=== PATIENT | female | born 1955 | race African-American/Black ===

== ENCOUNTER 2018-11-14 20:33 | Observation (INO) ==
[2018-11-14] MEDS ORDERED: OXYMETAZOLINE 0.05% NASAL SPRAY 15 ML BOTTLE ONE (21:44)
[2018-11-14 22:01] LABS: Basophils % 0.4 % (0.0-0.8); Eosinophils % 0.6 % (0.00-10.9); Hematocrit 36.3 VOL% (35.7-47.0); Hemoglobin 12.2 GM/DL (12.0-16.0); Immature Granulocytes % 0.4 %; Immature Granulocytes Absolute 0.02 #; Lymphocytes # 1.9 10*3/uL (1.4-4.0); Mean Corpuscular HGB Conc 33.6 GM/DL (32-36); Mean Corpuscular Hemoglobin 35 PG (27-34); Mean Corpuscular Volume 104.3 FL (87-102); Mean Platelet Volume 11.3 FL (9.6-12.0); Monocytes # 0.5 10*3/uL (0.11-0.8); Neutrophils # 2.8 10*3/uL (1.4-7.4); Neutrophils % 52.6 % (38.7-73.9); Platelet Count 231 T/CUMM (130-400); Red Blood Count 3.48 MC/CUMM (3.8-5.5); Red Cell Distribution Width 13.1 % (9.3-17.3); White Blood Count 5.2 T/CUMM (4-12)
[2018-11-14 22:17] LABS: PT Patient Result 32.1 SECS
[2018-11-14] MEDS ORDERED: ONDANSETRON ODT 4 MG TABLET PO STA (22:27)
[2018-11-14] MEDS ORDERED: ONDANSETRON ODT 4 MG TABLET PO ONE (22:27)
[2018-11-14] MEDS ORDERED: PHYTONADIONE PEDIATRIC 1 MG/0.5 ML AMP IV ONE (22:49)
[2018-11-14] MEDS ORDERED: PANTOPRAZOLE 40 MG VIAL IV ONE (22:50)
[2018-11-14] MEDS ORDERED: PANTOPRAZOLE 40 MG VIAL IV STA (22:50)
[2018-11-14] MEDS ORDERED: ONDANSETRON 4 MG/2 ML VIAL IV ONE (22:50)
[2018-11-14] MEDS ORDERED: ONDANSETRON 4 MG/2 ML VIAL ONE (22:50)
[2018-11-14] MEDS ORDERED: SODIUM CHLORIDE 0.9% 1,000 ML IV STA (22:51)
[2018-11-14] MEDS ORDERED: PHYTONADIONE 10 MG/1 ML AMP ONE (23:13)
[2018-11-14 23:52] LABS: Hemoglobin 11.4 GM/DL (12.0-16.0)
[2018-11-15] MEDS ORDERED: LIDOCAINE 1% 20 ML VIAL MISC INJ STA (00:10)
[2018-11-15] MEDS: ONDANSETRON 4 MG/2 ML VIAL IV PRN ×4 (02:52→19:37)
[2018-11-15 04:45] LABS: Basophils % 0.3 % (0.0-0.8); Hematocrit 30.1 VOL% (35.7-47.0); Hemoglobin 9.9 GM/DL (12.0-16.0); Immature Granulocytes % 0.5 %; Immature Granulocytes Absolute 0.04 #; Lymphocytes # 0.8 10*3/uL (1.4-4.0); Lymphocytes % 11.3 % (21.3-54.2); Mean Corpuscular HGB Conc 32.9 GM/DL (32-36); Mean Corpuscular Hemoglobin 34 PG (27-34); Mean Corpuscular Volume 104.5 FL (87-102); Mean Platelet Volume 11.5 FL (9.6-12.0); Monocytes # 0.4 10*3/uL (0.11-0.8); Monocytes % 4.8 % (1.7-12.7); Neutrophils # 6.2 10*3/uL (1.4-7.4); Neutrophils % 83.1 % (38.7-73.9); Platelet Count 195 T/CUMM (130-400); Red Blood Count 2.88 MC/CUMM (3.8-5.5); Red Cell Distribution Width 13.1 % (9.3-17.3); White Blood Count 7.5 T/CUMM (4-12)
[2018-11-15 04:57] LABS: INR 1.8; PT Patient Result 19.2 SECS
[2018-11-15 05:01] LABS: Calcium 8.4 MG/DL (8.5-10.1); Osmolality,Calculated 284.5 MOS/KG (273-304); Potassium 3.5 MMOL/L (3.5-5.1)
[2018-11-15] MEDS ORDERED: OXYMETAZOLINE 0.05% NASAL SPRAY 15 ML BOTTLE ONE NARE ONE (08:20)
[2018-11-15] MEDS ORDERED: OXYMETAZOLINE 0.05% NASAL SPRAY 15 ML BOTTLE BOTH NARES SCH (09:00)
[2018-11-15] MEDS ORDERED: MINOXIDIL 10 MG TABLET PO SCH (12:30)
[2018-11-15] MEDS: METOCLOPRAMIDE 10 MG TABLET PO SCH ×4 (13:16→21:12)
[2018-11-15] MEDS: METOPROLOL TARTRATE 50 MG TABLET PO SCH ×3 (13:16→21:11)
[2018-11-15] MEDS ORDERED: SODIUM CHLORIDE 0.9% 500 ML IV ONE (14:05)
[2018-11-15] MEDS ORDERED: METOPROLOL TARTRATE 5 MG/5 ML VIAL IV PRN (16:58)
[2018-11-15] MEDS ORDERED: WARFARIN 5 MG TABLET PO SCH (18:00)
[2018-11-16 08:38] LABS: INR 1.1; PT Patient Result 11.6 SECS
[2018-11-16 08:53] LABS: Calcium 8.3 MG/DL (8.5-10.1); Osmolality,Calculated 279.4 MOS/KG (273-304); Potassium 3.7 MMOL/L (3.5-5.1)
[2018-11-16] MEDS ORDERED: PANTOPRAZOLE 40 MG TABLET PO SCH (09:00)
[2018-11-16] MEDS ORDERED: ASPIRIN EC 81 MG TABLET PO SCH (09:00)
[2018-11-16] MEDS ORDERED: ASCORBIC ACID 500 MG TABLET PO SCH (09:00)
[2018-11-16] MEDS ORDERED: APIXABAN 5 MG TABLET PO SCH (09:00)
[2018-11-16] MEDS ORDERED: LOSARTAN/HCTZ 50-12.5 MG TABLET PO SCH (09:00)
[2018-11-16] MEDS: METOCLOPRAMIDE 10 MG TABLET PO SCH ×2 (09:14→12:42)
[2018-11-16] MEDS: METOPROLOL TARTRATE 50 MG TABLET PO SCH (09:14)
[2018-11-16] MEDS ORDERED: MAGNESIUM CHLORIDE 64 MG TABLET PO SCH (10:00)
[2018-11-16 12:18] VITALS: BP 98/63
== END 2018-11-16 16:10 | disposition home or self-care (01) ==
LOC: N.ED 20:33 → N.EDINP 20:33 → N.TELEN 11-15 01:53
PROVIDERS: ADMIT Otolaryngology; ATTEND Otolaryngology

== ENCOUNTER 2019-02-07 03:01 | Observation (INO) ==
[2019-02-07] MEDS ORDERED: MORPHINE 4 MG/1 ML VIAL IV STA (03:24)
[2019-02-07] MEDS ORDERED: FUROSEMIDE 100 MG/10 ML VIAL IV STA (03:24)
[2019-02-07] MEDS ORDERED: ALBUTEROL/IPRATROPIUM 3 ML NEB RESP TX STA (03:24)
[2019-02-07] MEDS ORDERED: ONDANSETRON 4 MG/2 ML VIAL IV STA (03:39)
[2019-02-07] MEDS ORDERED: ONDANSETRON 4 MG/2 ML VIAL ONE (03:39)
[2019-02-07 04:33] LABS: INR 2.6
[2019-02-07 04:34] LABS: PT Patient Result 28.2 SECS
[2019-02-07 04:37] LABS: Basophils % 0.5 % (0.0-0.8); Eosinophils % 0.5 % (0.00-10.9); Hematocrit 35.5 VOL% (35.7-47.0); Hemoglobin 11.4 GM/DL (12.0-16.0); Immature Granulocytes % 0.3 %; Immature Granulocytes Absolute 0.02 #; Lymphocytes # 1.3 10*3/uL (1.4-4.0); Lymphocytes % 20.4 % (21.3-54.2); Mean Corpuscular HGB Conc 32.1 GM/DL (32-36); Mean Corpuscular Volume 99.7 FL (87-102); Monocytes % 5.8 % (1.7-12.7); Neutrophils % 72.5 % (38.7-73.9); Platelet Count 195 T/CUMM (130-400); Red Blood Count 3.56 MC/CUMM (3.8-5.5); Red Cell Distribution Width 13.8 % (9.3-17.3); White Blood Count 6.2 T/CUMM (4-12)
[2019-02-07 04:45] LABS: Albumin 3.5 G/DL (3.4-5.0); Bilirubin,Total 0.6 MG/DL (0.2-1.0); Calcium 8.9 MG/DL (8.5-10.1); Osmolality,Calculated 278.5 MOS/KG (273-304); Total Protein 7.5 G/DL (6.4-8.3)
[2019-02-07] MEDS ORDERED: ASPIRIN EC 325 MG TABLET PO STA (04:52)
[2019-02-07] MEDS ORDERED: NITROGLYCERIN 2% OINT 1 INCH/GM PACK TOP STA (04:52)
[2019-02-07] MEDS ORDERED: MORPHINE 4 MG/1 ML VIAL IV PRN (05:38)
[2019-02-07] MEDS ORDERED: diphenhydrAMINE CAP 25 MG CAPSULE PO PRN (05:38)
[2019-02-07] MEDS ORDERED: NICOTINE 21 MG/24 HR PATCH TRANSDERM PRN (05:38)
[2019-02-07] MEDS ORDERED: BISACODYL 5 MG TABLET PO PRN (05:38)
[2019-02-07] MEDS ORDERED: guaiFENesin/DM ER 600-30 MG TABLET PO PRN (05:38)
[2019-02-07] MEDS ORDERED: MAGNESIUM SULF RIDER 4 GM in PREMIX 1 EACH IV PRN (05:38)
[2019-02-07] MEDS ORDERED: MAGNESIUM SULF RIDER 2 GM in PREMIX 1 EACH IV PRN (05:38)
[2019-02-07] MEDS ORDERED: ONDANSETRON 4 MG/2 ML VIAL IV PRN (05:38)
[2019-02-07] MEDS ORDERED: ACETAMINOPHEN 325 MG TABLET PO PRN (05:38)
[2019-02-07 06:24] LABS: Risk Ratio 2.73; Thyroid Stimulating Hormone 3.82 uIU/ml (0.358-3.74); VLDL CHOLESTEROL 27.2 MG/DL
[2019-02-07] MEDS ORDERED: ENOXAPARIN 40 MG/0.4 ML SYRINGE SUBCUT SCH (09:00)
[2019-02-07] MEDS: PANTOPRAZOLE 40 MG TABLET PO SCH (10:52)
[2019-02-07] MEDS: FUROSEMIDE 40 MG/4 ML VIAL IV SCH ×3 (10:53→16:07)
[2019-02-07] MEDS: LEVOFLOXACIN INJ 500 MG in PREMIX 1 EACH IV SCH (10:58)
[2019-02-07 13:15] LABS: Troponin I 0.291 NG/ML (0.00-0.045)
[2019-02-07] MEDS: METOPROLOL TARTRATE 50 MG TABLET PO SCH ×2 (13:21→22:22)
[2019-02-07] MEDS: CYCLOBENZAPRINE 10 MG TABLET PO PRN ×2 (14:28→22:20)
[2019-02-07] MEDS: POTASSIUM CHLORIDE 20 MEQ TABLET PO PRN ×3 (14:29→18:19)
[2019-02-07] MEDS: WARFARIN 5 MG TABLET PO SCH (18:19)
[2019-02-07] MEDS: ATORVASTATIN 80 MG TABLET PO SCH (22:20)
[2019-02-08 04:51] LABS: Albumin 3.3 G/DL (3.4-5.0); Bilirubin,Total 0.8 MG/DL (0.2-1.0); Calcium 9.3 MG/DL (8.5-10.1); Osmolality,Calculated 275.7 MOS/KG (273-304); Total Protein 7.7 G/DL (6.4-8.3)
[2019-02-08] MEDS: LEVOFLOXACIN INJ 500 MG in PREMIX 1 EACH IV SCH (08:43)
[2019-02-08] MEDS: LOSARTAN/HCTZ 50-12.5 MG TABLET PO SCH (08:45)
[2019-02-08] MEDS: METOPROLOL TARTRATE 50 MG TABLET PO SCH ×2 (08:45→21:31)
[2019-02-08] MEDS: ASCORBIC ACID 500 MG TABLET PO SCH (08:45)
[2019-02-08] MEDS: PANTOPRAZOLE 40 MG TABLET PO SCH (08:45)
[2019-02-08] MEDS: ASPIRIN EC 81 MG TABLET PO SCH (08:46)
[2019-02-08 14:59] LABS: INR 1.8; PT Patient Result 19.1 SECS; Partial Thromboplastin Time 32.7 SECS (0-40)
[2019-02-08] MEDS: GENTAMICIN 0.3% OPH SOLN 5 ML BOTTLE BOTH EYES SCH ×3 (15:13→23:10)
[2019-02-08] MEDS: ALBUTEROL/IPRATROPIUM 3 ML NEB RESP TX SCH ×3 (15:32→22:50)
[2019-02-08] MEDS ORDERED: WARFARIN 7.5 MG TABLET PO SCH (18:00)
[2019-02-08] MEDS: LEVOFLOXACIN INJ 750 MG in PREMIX 1 EACH IV SCH (21:30)
[2019-02-08] MEDS: ATORVASTATIN 80 MG TABLET PO SCH (21:31)
[2019-02-09] MEDS: ALBUTEROL/IPRATROPIUM 3 ML NEB RESP TX SCH ×3 (02:42→12:00)
[2019-02-09] MEDS: GENTAMICIN 0.3% OPH SOLN 5 ML BOTTLE BOTH EYES SCH ×6 (03:16→23:00)
[2019-02-09 04:59] LABS: Basophils % 0.8 % (0.0-0.8); Eosinophils % 0.8 % (0.00-10.9); Hematocrit 39.9 VOL% (35.7-47.0); Hemoglobin 12.9 GM/DL (12.0-16.0); Immature Granulocytes % 0.2 %; Immature Granulocytes Absolute 0.01 #; Lymphocytes % 39.1 % (21.3-54.2); Mean Corpuscular HGB Conc 32.3 GM/DL (32-36); Mean Platelet Volume 11.6 FL (9.6-12.0); Monocytes % 12.4 % (1.7-12.7); Neutrophils % 46.7 % (38.7-73.9); Platelet Count 199 T/CUMM (130-400); Red Blood Count 4.03 MC/CUMM (3.8-5.5); Red Cell Distribution Width 13.9 % (9.3-17.3)
[2019-02-09 05:07] LABS: INR 1.8; Partial Thromboplastin Time 33.8 SECS (0-40)
[2019-02-09 05:41] LABS: Calcium 9.1 MG/DL (8.5-10.1); Osmolality,Calculated 274.8 MOS/KG (273-304)
[2019-02-09] MEDS: ASCORBIC ACID 500 MG TABLET PO SCH (09:08)
[2019-02-09] MEDS: LOSARTAN/HCTZ 50-12.5 MG TABLET PO SCH (09:08)
[2019-02-09] MEDS: PANTOPRAZOLE 40 MG TABLET PO SCH (09:08)
[2019-02-09] MEDS: METOPROLOL TARTRATE 50 MG TABLET PO SCH ×2 (09:08→21:00)
[2019-02-09] MEDS: ASPIRIN EC 81 MG TABLET PO SCH (09:08)
[2019-02-09] MEDS: POTASSIUM CHLORIDE 20 MEQ TABLET PO PRN ×2 (09:08→11:05)
[2019-02-09] MEDS ORDERED: DICLOFENAC 1% GEL 100 GM TUBE TOP PRN (11:33)
[2019-02-09] MEDS: IPRATROPIUM 500 MCG/2.5 ML NEB RESP TX SCH ×3 (12:00→19:15)
[2019-02-09] MEDS: LEVALBUTEROL 1.25 MG/3 ML NEB RESP TX SCH ×2 (14:40→19:15)
[2019-02-09] MEDS: WARFARIN 5 MG TABLET PO SCH (17:48)
[2019-02-09] MEDS: LEVOFLOXACIN INJ 750 MG in PREMIX 1 EACH IV SCH (20:59)
[2019-02-09] MEDS: CYCLOBENZAPRINE 10 MG TABLET PO PRN (21:00)
[2019-02-09] MEDS: ATORVASTATIN 80 MG TABLET PO SCH (21:00)
[2019-02-10] MEDS: GENTAMICIN 0.3% OPH SOLN 5 ML BOTTLE BOTH EYES SCH ×6 (03:26→23:10)
[2019-02-10 06:11] LABS: Basophils % 0.7 % (0.0-0.8); Eosinophils % 0.9 % (0.00-10.9); Hematocrit 40.4 VOL% (35.7-47.0); Hemoglobin 12.8 GM/DL (12.0-16.0); Immature Granulocytes % 0.2 %; Immature Granulocytes Absolute 0.01 #; Lymphocytes # 1.6 10*3/uL (1.4-4.0); Lymphocytes % 35.5 % (21.3-54.2); Mean Corpuscular HGB Conc 31.7 GM/DL (32-36); Mean Corpuscular Volume 100.5 FL (87-102); Mean Platelet Volume 11.5 FL (9.6-12.0); Monocytes % 10.7 % (1.7-12.7); Platelet Count 197 T/CUMM (130-400); Red Blood Count 4.02 MC/CUMM (3.8-5.5); Red Cell Distribution Width 13.9 % (9.3-17.3); White Blood Count 4.5 T/CUMM (4-12)
[2019-02-10 06:20] LABS: INR 1.7; PT Patient Result 18.7 SECS; Partial Thromboplastin Time 32.4 SECS (0-40)
[2019-02-10] MEDS: LEVALBUTEROL 1.25 MG/3 ML NEB RESP TX SCH ×4 (06:48→20:15)
[2019-02-10] MEDS: IPRATROPIUM 500 MCG/2.5 ML NEB RESP TX SCH ×4 (06:48→20:15)
[2019-02-10 06:54] LABS: Calcium 9.2 MG/DL (8.5-10.1); Osmolality,Calculated 275.8 MOS/KG (273-304)
[2019-02-10] MEDS: ASPIRIN EC 81 MG TABLET PO SCH (08:34)
[2019-02-10] MEDS: LOSARTAN/HCTZ 50-12.5 MG TABLET PO SCH (08:34)
[2019-02-10] MEDS: METOPROLOL TARTRATE 50 MG TABLET PO SCH ×2 (08:34→20:59)
[2019-02-10] MEDS: ASCORBIC ACID 500 MG TABLET PO SCH (08:35)
[2019-02-10] MEDS: PANTOPRAZOLE 40 MG TABLET PO SCH (08:35)
[2019-02-10] MEDS: guaiFENesin/DM ER 600-30 MG TABLET PO SCH ×2 (10:59→20:59)
[2019-02-10] MEDS: WARFARIN 5 MG TABLET PO SCH (17:56)
[2019-02-10] MEDS: LEVOFLOXACIN INJ 750 MG in PREMIX 1 EACH IV SCH (20:59)
[2019-02-10] MEDS: CYCLOBENZAPRINE 10 MG TABLET PO PRN (20:59)
[2019-02-10] MEDS: ATORVASTATIN 80 MG TABLET PO SCH (20:59)
[2019-02-11] MEDS: IPRATROPIUM 500 MCG/2.5 ML NEB RESP TX SCH ×2 (00:51→07:22)
[2019-02-11] MEDS: LEVALBUTEROL 1.25 MG/3 ML NEB RESP TX SCH ×2 (00:51→07:22)
[2019-02-11] MEDS: GENTAMICIN 0.3% OPH SOLN 5 ML BOTTLE BOTH EYES SCH ×2 (03:47→06:23)
[2019-02-11 05:13] LABS: Basophils % 0.7 % (0.0-0.8); Eosinophils # 0.1 10*3/uL (0.0-0.87); Eosinophils % 1.1 % (0.00-10.9); Hematocrit 39.9 VOL% (35.7-47.0); Immature Granulocytes % 0.2 %; Immature Granulocytes Absolute 0.01 #; Lymphocytes # 1.5 10*3/uL (1.4-4.0); Lymphocytes % 31.7 % (21.3-54.2); Mean Corpuscular HGB Conc 32.6 GM/DL (32-36); Mean Corpuscular Volume 98.8 FL (87-102); Mean Platelet Volume 11.9 FL (9.6-12.0); Neutrophils % 56.3 % (38.7-73.9); Platelet Count 197 T/CUMM (130-400); Red Blood Count 4.04 MC/CUMM (3.8-5.5); Red Cell Distribution Width 14.1 % (9.3-17.3); White Blood Count 4.6 T/CUMM (4-12)
[2019-02-11 05:23] LABS: INR 1.8; PT Patient Result 19.4 SECS
[2019-02-11 05:44] LABS: Calcium 9.3 MG/DL (8.5-10.1); Osmolality,Calculated 275.8 MOS/KG (273-304)
[2019-02-11 08:17] VITALS: BP 105/81
[2019-02-11] MEDS: ASCORBIC ACID 500 MG TABLET PO SCH (09:27)
[2019-02-11] MEDS: LOSARTAN/HCTZ 50-12.5 MG TABLET PO SCH (09:27)
[2019-02-11] MEDS: ASPIRIN EC 81 MG TABLET PO SCH (09:27)
[2019-02-11] MEDS: METOPROLOL TARTRATE 50 MG TABLET PO SCH (09:27)
[2019-02-11] MEDS: guaiFENesin/DM ER 600-30 MG TABLET PO SCH (09:27)
[2019-02-11] MEDS: PANTOPRAZOLE 40 MG TABLET PO SCH (09:28)
== END 2019-02-11 11:30 | disposition home or self-care (01) | DRG 193 ==
LOC: N.ED 03:01 → N.EDINP 05:38 → INTOOBSV 05:38 → N.TELEN 06:24
PROVIDERS: ADMIT Internal Medicine; ATTEND Internal Medicine

== ENCOUNTER 2021-03-01 17:29 | Observation (INO) ==
[2021-03-01 18:55] LABS: Basophils % 0.5 % (0.0-0.8); Eosinophils # 0.1 10*3/uL (0.0-0.87); Eosinophils % 0.9 % (0.00-10.9); Hematocrit 33.4 VOL% (35.7-47.0); Hemoglobin 11.1 GM/DL (12.0-16.0); Immature Granulocytes % 0.2 %; Immature Granulocytes Absolute 0.01 #; Lymphocytes # 1.7 10*3/uL (1.4-4.0); Lymphocytes % 29.9 % (21.3-54.2); Mean Corpuscular HGB Conc 33.2 GM/DL (32-36); Mean Corpuscular Volume 103.1 FL (87-102); Mean Platelet Volume 11.4 FL (9.6-12.0); Monocytes % 6.6 % (1.7-12.7); Neutrophils % 61.9 % (38.7-73.9); Platelet Count 237 T/CUMM (130-400); Red Blood Count 3.24 MC/CUMM (3.8-5.5); White Blood Count 5.6 T/CUMM (4-12)
[2021-03-01 19:03] LABS: INR 2.2; PT Patient Result 23.1 SECS (10.5-12.0)
[2021-03-01 19:11] LABS: Albumin 3.5 G/DL (3.4-5.0); Bilirubin,Total 0.6 MG/DL (0.2-1.0); Calcium 9.3 MG/DL (8.5-10.1); Osmolality,Calculated 280.3 MOS/KG (273-304); Potassium 5.1 MMOL/L (3.5-5.1); Total Protein 8.5 G/DL (6.4-8.2)
[2021-03-01] MEDS ORDERED: FUROSEMIDE 100 MG/10 ML VIAL IV STA (19:23)
[2021-03-01] MEDS ORDERED: FUROSEMIDE 40 MG/4 ML VIAL ONE (19:25)
[2021-03-01] MEDS ORDERED: MAGNESIUM SULF RIDER 4 GM/100 ML PREMIX IV PRN (19:51)
[2021-03-01] MEDS ORDERED: ONDANSETRON 4 MG/2 ML VIAL IV PRN (19:51)
[2021-03-01] MEDS ORDERED: MAGNESIUM SULF RIDER 2 GM/50 ML PREMIX IV PRN (19:51)
[2021-03-01] MEDS ORDERED: ONDANSETRON 4 MG/2 ML VIAL IV STA (19:53)
[2021-03-01] MEDS: FUROSEMIDE 40 MG TABLET PO SCH (22:37)
[2021-03-01] MEDS: METOCLOPRAMIDE 10 MG TABLET PO SCH (22:37)
[2021-03-01] MEDS: METOPROLOL TARTRATE 50 MG TABLET PO SCH (22:37)
[2021-03-02] MEDS ORDERED: ALBUTEROL 2.5 MG/3 ML NEB RESP TX SCH (07:00)
[2021-03-02] MEDS ORDERED: POTASSIUM CHLORIDE 20 MEQ TABLET PO PRN (07:32)
[2021-03-02] MEDS ORDERED: WARFARIN 5 MG TABLET PO SCH (09:00)
[2021-03-02] MEDS ORDERED: MAGNESIUM OXIDE 400 MG TABLET PO SCH (09:00)
[2021-03-02] MEDS ORDERED: LOSARTAN 50 MG TABLET PO SCH (09:00)
[2021-03-02] MEDS ORDERED: PANTOPRAZOLE 40 MG TABLET PO SCH (09:00)
[2021-03-02] MEDS ORDERED: LATANOPROST 0.005% OPH SOLN 2.5 ML BOTTLE BOTH EYES SCH (09:00)
[2021-03-02] MEDS ORDERED: ASCORBIC ACID 500 MG TABLET PO SCH (09:00)
[2021-03-02] MEDS ORDERED: SIMVASTATIN 10 MG TABLET PO SCH (09:00)
[2021-03-02] MEDS ORDERED: ASPIRIN EC 81 MG TABLET PO SCH (09:00)
[2021-03-02] MEDS ORDERED: SACUBITRIL/VALSARTAN 49-51 MG TABLET PO SCH (09:07)
[2021-03-02] MEDS: METOPROLOL TARTRATE 50 MG TABLET PO SCH (09:36)
[2021-03-02] MEDS: METOCLOPRAMIDE 10 MG TABLET PO SCH (09:37)
[2021-03-02] MEDS: FUROSEMIDE 40 MG TABLET PO SCH (09:38)
[2021-03-02] MEDS ORDERED: ACETAMINOPHEN 325 MG TABLET PO PRN (10:47)
[2021-03-02 12:05] VITALS: BP 119/70
[2021-03-02] MEDS ORDERED: WARFARIN 7.5 MG TABLET PO SCH (18:00)
[2021-03-03] MEDS ORDERED: WARFARIN 7.5 MG TABLET PO SCH (18:00)
== END 2021-03-02 13:34 | disposition home or self-care (01) ==
LOC: N.ED 17:29 → N.EDINP 17:29 → N.TELEN 21:59
PROVIDERS: ADMIT Internal Medicine Cardiovascular Disease; ATTEND Internal Medicine Cardiovascular Disease

== ENCOUNTER 2022-09-19 15:18 | Inpatient (IN) ==
[2022-09-19 16:56] LABS: Basophils % 0.2 % (0.0-0.8); Hematocrit 32.2 VOL% (35.7-47.0); Hemoglobin 10.7 GM/DL (12.0-16.0); Immature Granulocytes % 0.4 %; Immature Granulocytes Absolute 0.03 #; Lymphocytes # 0.9 10*3/uL (1.4-4.0); Lymphocytes % 10.8 % (21.3-54.2); Mean Corpuscular HGB Conc 33.2 GM/DL (32-36); Mean Corpuscular Volume 107.3 FL (87-102); Mean Platelet Volume 10.9 FL (9.6-12.0); Monocytes # 0.4 10*3/uL (0.11-0.8); Monocytes % 5.1 % (1.7-12.7); Neutrophils % 83.5 % (38.7-73.9); Platelet Count 254 T/CUMM (130-400); Red Cell Distribution Width 15.2 % (9.3-17.3); White Blood Count 8.5 T/CUMM (4-12)
[2022-09-19 17:14] LABS: RBC,Urine 1 /HPF (0-4); Squamous Epithelial Cell,Urine Few /HPF (0-10)
[2022-09-19 17:15] LABS: Bilirubin,Urine Negative (Negative); Blood, Urine Negative (Negative); Glucose,Urine (UA) Negative (Negative); Ketones,Urine Negative (Negative); Nitrite,Urine Negative (Negative); Protein,Urine 100 mg/dL (Negative); Urine Appearance Clear (Clear); Urine Color Yellow (Yellow); Urine Specific Gravity 1.015 (1.001-1.035); Urine Urobilinogen 0.2 eU/dL (<2.0); Urine pH 8.5 (4.5-8.0)
[2022-09-19 17:17] LABS: Alanine Aminotransferase < 9 U/L (13-56); Albumin 3.1 G/DL (3.4-5.0); Alkaline Phosphatase 124 U/L (45-117); Aspartate Amino Transferase 22 U/L (0-37); Blood Urea Nitrogen 11 MG/DL (7-18); Calcium 9.6 MG/DL (8.5-10.1); Carbon Dioxide 25 MMOL/L (21-32); Chloride 106 MMOL/L (98-107); Glucose 93 MG/DL (74-106); Osmolality,Calculated 277.4 MOS/KG (273-304); Potassium 3.7 MMOL/L (3.5-5.1); Sodium 140 MMOL/L (136-145); Total Protein 7.5 G/DL (6.4-8.2)
[2022-09-19] MEDS ORDERED: KETOROLAC 30 MG/1 ML VIAL IV STA (19:21)
[2022-09-19] MEDS ORDERED: SODIUM CHLORIDE 0.9% 1,000 ML IV STA (19:21)
[2022-09-19] MEDS ORDERED: ONDANSETRON 4 MG/2 ML VIAL IV STA (19:21)
[2022-09-19] MEDS ORDERED: PIPERACILLIN/TAZOBACTAM 3,375 MG in SODIUM CHLORIDE 0.9% 100 ML IV STA (19:21)
[2022-09-19] MEDS ORDERED: metroNIDAZOLE INJ 500 MG/100 ML PREMIX IV STA (19:21)
[2022-09-19] MEDS: MORPHINE 2 MG/1 ML SYRINGE IV PRN (20:46)
[2022-09-19 23:09] LABS: INR 1.7; PT Patient Result 17.7 SECS (10.1-12.1); Partial Thromboplastin Time 50.4 SECS (23.7-32.9)
[2022-09-19] MEDS: AMPICILLIN/SULBACTAM 3,000 MG in SODIUM CHLORIDE 0.9% 100 ML IV SCH (23:20)
[2022-09-19] MEDS: LACTATED RINGERS 1,000 ML IV SCH (23:20)
[2022-09-19] MEDS: ONDANSETRON 4 MG/2 ML VIAL IV PRN (23:29)
[2022-09-20 05:38] LABS: Basophils % 0.3 % (0.0-0.8); Eosinophils % 0.3 % (0.00-10.9); Hematocrit 25.6 VOL% (35.7-47.0); Hemoglobin 8.2 GM/DL (12.0-16.0); Immature Granulocytes % 0.4 %; Immature Granulocytes Absolute 0.03 #; Lymphocytes # 1.2 10*3/uL (1.4-4.0); Mean Corpuscular Volume 113.3 FL (87-102); Mean Platelet Volume 11.5 FL (9.6-12.0); Monocytes # 0.3 10*3/uL (0.11-0.8); Monocytes % 4.4 % (1.7-12.7); Neutrophils % 77.6 % (38.7-73.9); Platelet Count 193 T/CUMM (130-400); Red Blood Count 2.26 MC/CUMM (3.8-5.5); Red Cell Distribution Width 15.7 % (9.3-17.3); White Blood Count 6.9 T/CUMM (4-12)
[2022-09-20 05:39] LABS: Calcium 8.3 MG/DL (8.5-10.1); Osmolality,Calculated 278.3 MOS/KG (273-304); Potassium 3.7 MMOL/L (3.5-5.1)
[2022-09-20] MEDS: LACTATED RINGERS 1,000 ML IV SCH ×2 (05:53→09:41)
[2022-09-20 05:54] LABS: Macrocytosis Slight; Platelet Estimate Adequate
[2022-09-20] MEDS: ONDANSETRON 4 MG/2 ML VIAL IV PRN ×3 (09:40→23:54)
[2022-09-20] MEDS: MORPHINE 2 MG/1 ML SYRINGE IV PRN ×3 (09:41→23:55)
[2022-09-20] MEDS ORDERED: NITROGLYCERIN SL 0.4 MG TABLET SL PRN (10:51)
[2022-09-20] MEDS ORDERED: ALBUTEROL 2.5 MG/3 ML NEB RESP TX PRN (10:51)
[2022-09-20] MEDS: AMPICILLIN/SULBACTAM 3,000 MG in SODIUM CHLORIDE 0.9% 100 ML IV SCH ×4 (11:08→23:56)
[2022-09-20] MEDS: ENOXAPARIN 100 MG/ML SYRINGE SUBCUT SCH (14:20)
[2022-09-20] MEDS ORDERED: ALBUTEROL/IPRATROPIUM 3 ML NEB RESP TX PRN (14:45)
[2022-09-20] MEDS: METOPROLOL TARTRATE 50 MG TABLET PO SCH (21:45)
[2022-09-20] MEDS: MAGNESIUM OXIDE 400 MG TABLET PO SCH (21:45)
[2022-09-20] MEDS: SIMVASTATIN 10 MG TABLET PO SCH (21:46)
[2022-09-20] MEDS: PANTOPRAZOLE 40 MG TABLET PO SCH (21:46)
[2022-09-20] MEDS: CITALOPRAM 20 MG TABLET PO SCH (21:46)
[2022-09-20] MEDS: LATANOPROST 0.005% OPH SOLN 2.5 ML BOTTLE BOTH EYES SCH (21:46)
[2022-09-21 05:09] LABS: Basophils % 0.3 % (0.0-0.8); Eosinophils % 0.4 % (0.00-10.9); Hematocrit 26.7 VOL% (35.7-47.0); Hemoglobin 8.6 GM/DL (12.0-16.0); Immature Granulocytes % 0.4 %; Immature Granulocytes Absolute 0.03 #; Lymphocytes # 0.8 10*3/uL (1.4-4.0); Lymphocytes % 10.6 % (21.3-54.2); Mean Corpuscular HGB Conc 32.2 GM/DL (32-36); Mean Corpuscular Volume 110.8 FL (87-102); Mean Platelet Volume 11.4 FL (9.6-12.0); Monocytes # 0.4 10*3/uL (0.11-0.8); Monocytes % 5.4 % (1.7-12.7); Neutrophils % 82.9 % (38.7-73.9); Platelet Count 226 T/CUMM (130-400); Red Blood Count 2.41 MC/CUMM (3.8-5.5); Red Cell Distribution Width 15.2 % (9.3-17.3); White Blood Count 7.2 T/CUMM (4-12)
[2022-09-21] MEDS: AMPICILLIN/SULBACTAM 3,000 MG in SODIUM CHLORIDE 0.9% 100 ML IV SCH ×3 (05:20→17:19)
[2022-09-21 05:30] LABS: Calcium 8.9 MG/DL (8.5-10.1); Hypochromia Slight; Macrocytosis Slight; Osmolality,Calculated 279.3 MOS/KG (273-304); Potassium 3.5 MMOL/L (3.5-5.1)
[2022-09-21 05:31] LABS: Platelet Estimate Normal
[2022-09-21] MEDS: ONDANSETRON 4 MG/2 ML VIAL IV PRN ×3 (06:00→20:58)
[2022-09-21] MEDS: MORPHINE 2 MG/1 ML SYRINGE IV PRN (06:02)
[2022-09-21] MEDS: VALSARTAN 80 MG TABLET PO SCH (09:40)
[2022-09-21] MEDS: MULTIVITAMIN (CENTRUM) TABLET PO SCH (09:41)
[2022-09-21] MEDS: METOPROLOL TARTRATE 50 MG TABLET PO SCH (09:41)
[2022-09-21] MEDS: THIAMINE 100 MG TABLET PO SCH (09:41)
[2022-09-21] MEDS: SPIRONOLACTONE 25 MG TABLET PO SCH (09:41)
[2022-09-21] MEDS: MAGNESIUM OXIDE 400 MG TABLET PO SCH ×2 (09:41→20:58)
[2022-09-21] MEDS: PANTOPRAZOLE 40 MG TABLET PO SCH ×2 (09:41→20:58)
[2022-09-21] MEDS: FOLIC ACID 1 MG TABLET PO SCH (09:41)
[2022-09-21] MEDS: ENOXAPARIN 100 MG/ML SYRINGE SUBCUT SCH (12:20)
[2022-09-21] MEDS ORDERED: METOPROLOL TARTRATE 50 MG TABLET PO ONE (15:51)
[2022-09-21] MEDS: CITALOPRAM 20 MG TABLET PO SCH (20:57)
[2022-09-21] MEDS: SIMVASTATIN 10 MG TABLET PO SCH (20:58)
[2022-09-21] MEDS: METOPROLOL TARTRATE 100 MG TABLET PO SCH (20:58)
[2022-09-21] MEDS: LATANOPROST 0.005% OPH SOLN 2.5 ML BOTTLE BOTH EYES SCH (22:39)
[2022-09-22] MEDS: AMPICILLIN/SULBACTAM 3,000 MG in SODIUM CHLORIDE 0.9% 100 ML IV SCH ×5 (00:13→23:23)
[2022-09-22] MEDS: MORPHINE 2 MG/1 ML SYRINGE IV PRN ×4 (00:24→21:24)
[2022-09-22 05:16] LABS: Basophils % 0.1 % (0.0-0.8); Eosinophils % 0.3 % (0.00-10.9); Hematocrit 25.4 VOL% (35.7-47.0); Hemoglobin 8.2 GM/DL (12.0-16.0); Immature Granulocytes % 0.5 %; Immature Granulocytes Absolute 0.04 #; Lymphocytes # 0.9 10*3/uL (1.4-4.0); Lymphocytes % 11.7 % (21.3-54.2); Mean Corpuscular HGB Conc 32.3 GM/DL (32-36); Mean Corpuscular Volume 109.5 FL (87-102); Mean Platelet Volume 11.7 FL (9.6-12.0); Monocytes # 0.6 10*3/uL (0.11-0.8); Neutrophils % 80.4 % (38.7-73.9); Platelet Count 225 T/CUMM (130-400); Red Blood Count 2.32 MC/CUMM (3.8-5.5); Red Cell Distribution Width 14.6 % (9.3-17.3); White Blood Count 7.9 T/CUMM (4-12)
[2022-09-22 05:32] LABS: Calcium 8.8 MG/DL (8.5-10.1); Osmolality,Calculated 277.4 MOS/KG (273-304); Potassium 3.6 MMOL/L (3.5-5.1)
[2022-09-22] MEDS: ONDANSETRON 4 MG/2 ML VIAL IV PRN ×3 (06:04→21:24)
[2022-09-22] MEDS: THIAMINE 100 MG TABLET PO SCH (09:00)
[2022-09-22] MEDS: VALSARTAN 80 MG TABLET PO SCH (09:01)
[2022-09-22] MEDS: MAGNESIUM OXIDE 400 MG TABLET PO SCH ×2 (09:01→21:24)
[2022-09-22] MEDS: SPIRONOLACTONE 25 MG TABLET PO SCH (09:01)
[2022-09-22] MEDS: FOLIC ACID 1 MG TABLET PO SCH (09:01)
[2022-09-22] MEDS: METOPROLOL TARTRATE 100 MG TABLET PO SCH ×2 (09:01→21:25)
[2022-09-22] MEDS: PANTOPRAZOLE 40 MG TABLET PO SCH ×2 (09:01→21:25)
[2022-09-22] MEDS: MULTIVITAMIN (CENTRUM) TABLET PO SCH (09:01)
[2022-09-22] MEDS: SIMVASTATIN 10 MG TABLET PO SCH (21:24)
[2022-09-22] MEDS: CITALOPRAM 20 MG TABLET PO SCH (21:25)
[2022-09-22] MEDS: LATANOPROST 0.005% OPH SOLN 2.5 ML BOTTLE BOTH EYES SCH (21:26)
[2022-09-23] MEDS: ONDANSETRON 4 MG/2 ML VIAL IV PRN ×2 (04:50→21:09)
[2022-09-23] MEDS: MORPHINE 2 MG/1 ML SYRINGE IV PRN ×2 (04:51→21:11)
[2022-09-23 06:02] LABS: Basophils % 0.3 % (0.0-0.8); Eosinophils % 0.5 % (0.00-10.9); Hematocrit 23.7 VOL% (35.7-47.0); Hemoglobin 7.8 GM/DL (12.0-16.0); Immature Granulocytes % 0.6 %; Immature Granulocytes Absolute 0.04 #; Lymphocytes # 1.1 10*3/uL (1.4-4.0); Lymphocytes % 17.9 % (21.3-54.2); Mean Corpuscular HGB Conc 32.9 GM/DL (32-36); Mean Corpuscular Volume 109.7 FL (87-102); Monocytes # 0.5 10*3/uL (0.11-0.8); Monocytes % 7.7 % (1.7-12.7); Platelet Count 233 T/CUMM (130-400); Red Blood Count 2.16 MC/CUMM (3.8-5.5); Red Cell Distribution Width 14.5 % (9.3-17.3); White Blood Count 6.4 T/CUMM (4-12)
[2022-09-23] MEDS: AMPICILLIN/SULBACTAM 3,000 MG in SODIUM CHLORIDE 0.9% 100 ML IV SCH (06:08)
[2022-09-23 06:12] LABS: Calcium 8.8 MG/DL (8.5-10.1); Osmolality,Calculated 276.4 MOS/KG (273-304); Potassium 3.3 MMOL/L (3.5-5.1)
[2022-09-23 06:16] LABS: INR 1.3; Partial Thromboplastin Time 36.7 SECS (23.7-32.9)
[2022-09-23] MEDS ORDERED: FUROSEMIDE 40 MG/4 ML VIAL IV ONE (09:15)
[2022-09-23] MEDS ORDERED: SODIUM CHLORIDE 0.9% 1,000 ML IV PRN (10:00)
[2022-09-23] MEDS: MAGNESIUM OXIDE 400 MG TABLET PO SCH ×2 (10:04→20:43)
[2022-09-23] MEDS: VALSARTAN 80 MG TABLET PO SCH (10:04)
[2022-09-23] MEDS: FOLIC ACID 1 MG TABLET PO SCH (10:04)
[2022-09-23] MEDS: METOPROLOL TARTRATE 100 MG TABLET PO SCH ×2 (10:05→20:43)
[2022-09-23] MEDS: THIAMINE 100 MG TABLET PO SCH (10:05)
[2022-09-23] MEDS: SPIRONOLACTONE 25 MG TABLET PO SCH (10:05)
[2022-09-23] MEDS: PANTOPRAZOLE 40 MG TABLET PO SCH ×2 (10:05→20:43)
[2022-09-23] MEDS: POTASSIUM CHLORIDE RIDER 10 MEQ/100 ML PREMIX IV PRN ×3 (10:06→15:35)
[2022-09-23] MEDS: MULTIVITAMIN (CENTRUM) TABLET PO SCH (10:08)
[2022-09-23] MEDS: FUROSEMIDE 20 MG/2 ML VIAL IV SCH ×2 (14:01→17:33)
[2022-09-23] MEDS: LATANOPROST 0.005% OPH SOLN 2.5 ML BOTTLE BOTH EYES SCH (20:42)
[2022-09-23] MEDS: SIMVASTATIN 10 MG TABLET PO SCH (20:43)
[2022-09-23] MEDS: CITALOPRAM 20 MG TABLET PO SCH (20:43)
[2022-09-24] MEDS: FUROSEMIDE 20 MG/2 ML VIAL IV SCH ×3 (01:15→17:32)
[2022-09-24] MEDS: POTASSIUM CHLORIDE RIDER 10 MEQ/100 ML PREMIX IV PRN (01:17)
[2022-09-24] MEDS: AMPICILLIN/SULBACTAM 3,000 MG in SODIUM CHLORIDE 0.9% 100 ML IV SCH ×4 (03:38→21:19)
[2022-09-24] MEDS: ONDANSETRON 4 MG/2 ML VIAL IV PRN ×2 (04:56→15:06)
[2022-09-24] MEDS: MORPHINE 2 MG/1 ML SYRINGE IV PRN (04:58)
[2022-09-24 06:33] LABS: Basophils % 0.2 % (0.0-0.8); Eosinophils # 0.1 10*3/uL (0.0-0.87); Eosinophils % 0.9 % (0.00-10.9); Hemoglobin 9.7 GM/DL (12.0-16.0); Immature Granulocytes % 0.8 %; Immature Granulocytes Absolute 0.05 #; Lymphocytes # 1.1 10*3/uL (1.4-4.0); Mean Corpuscular HGB Conc 33.4 GM/DL (32-36); Mean Corpuscular Volume 102.1 FL (87-102); Mean Platelet Volume 11.4 FL (9.6-12.0); Monocytes # 0.5 10*3/uL (0.11-0.8); Monocytes % 8.4 % (1.7-12.7); Neutrophils % 71.7 % (38.7-73.9); Platelet Count 247 T/CUMM (130-400); Red Blood Count 2.84 MC/CUMM (3.8-5.5); Red Cell Distribution Width 18.9 % (9.3-17.3); White Blood Count 6.3 T/CUMM (4-12)
[2022-09-24 06:52] LABS: Calcium 8.8 MG/DL (8.5-10.1); Osmolality,Calculated 277.3 MOS/KG (273-304); Potassium 3.4 MMOL/L (3.5-5.1)
[2022-09-24] MEDS: MULTIVITAMIN (CENTRUM) TABLET PO SCH (09:39)
[2022-09-24] MEDS: METOPROLOL TARTRATE 100 MG TABLET PO SCH ×2 (09:39→21:08)
[2022-09-24] MEDS: VALSARTAN 80 MG TABLET PO SCH (09:40)
[2022-09-24] MEDS: PANTOPRAZOLE 40 MG TABLET PO SCH ×2 (09:40→21:07)
[2022-09-24] MEDS: FOLIC ACID 1 MG TABLET PO SCH (09:40)
[2022-09-24] MEDS: THIAMINE 100 MG TABLET PO SCH (09:40)
[2022-09-24] MEDS: SPIRONOLACTONE 25 MG TABLET PO SCH (09:40)
[2022-09-24] MEDS: MAGNESIUM OXIDE 400 MG TABLET PO SCH ×2 (09:40→21:08)
[2022-09-24] MEDS: SIMVASTATIN 10 MG TABLET PO SCH (21:08)
[2022-09-24] MEDS: CITALOPRAM 20 MG TABLET PO SCH (21:08)
[2022-09-24] MEDS: LATANOPROST 0.005% OPH SOLN 2.5 ML BOTTLE BOTH EYES SCH (21:09)
[2022-09-25] MEDS: FUROSEMIDE 20 MG/2 ML VIAL IV SCH ×3 (02:07→17:28)
[2022-09-25] MEDS: ONDANSETRON 4 MG/2 ML VIAL IV PRN ×2 (03:38→17:37)
[2022-09-25] MEDS: AMPICILLIN/SULBACTAM 3,000 MG in SODIUM CHLORIDE 0.9% 100 ML IV SCH (03:38)
[2022-09-25 06:36] LABS: Basophils % 0.4 % (0.0-0.8); Eosinophils # 0.1 10*3/uL (0.0-0.87); Eosinophils % 1.2 % (0.00-10.9); Hematocrit 30.7 VOL% (35.7-47.0); Hemoglobin 10.2 GM/DL (12.0-16.0); Immature Granulocytes % 0.7 %; Immature Granulocytes Absolute 0.05 #; Lymphocytes # 0.8 10*3/uL (1.4-4.0); Lymphocytes % 12.3 % (21.3-54.2); Mean Corpuscular HGB Conc 33.2 GM/DL (32-36); Mean Platelet Volume 11.3 FL (9.6-12.0); Monocytes # 0.4 10*3/uL (0.11-0.8); Monocytes % 5.9 % (1.7-12.7); Neutrophils % 79.5 % (38.7-73.9); Platelet Count 307 T/CUMM (130-400); Red Blood Count 3.01 MC/CUMM (3.8-5.5); Red Cell Distribution Width 18.6 % (9.3-17.3); White Blood Count 6.7 T/CUMM (4-12)
[2022-09-25 06:51] LABS: Calcium 8.7 MG/DL (8.5-10.1); Osmolality,Calculated 272.7 MOS/KG (273-304); Potassium 3.1 MMOL/L (3.5-5.1)
[2022-09-25] MEDS: POTASSIUM CHLORIDE 20 MEQ TABLET PO PRN ×2 (10:59→17:27)
[2022-09-25] MEDS: METOPROLOL TARTRATE 100 MG TABLET PO SCH ×2 (10:59→21:05)
[2022-09-25] MEDS: THIAMINE 100 MG TABLET PO SCH (10:59)
[2022-09-25] MEDS: SPIRONOLACTONE 25 MG TABLET PO SCH (10:59)
[2022-09-25] MEDS: FOLIC ACID 1 MG TABLET PO SCH (10:59)
[2022-09-25] MEDS: MULTIVITAMIN (CENTRUM) TABLET PO SCH (10:59)
[2022-09-25] MEDS: MAGNESIUM OXIDE 400 MG TABLET PO SCH ×2 (10:59→21:05)
[2022-09-25] MEDS: PANTOPRAZOLE 40 MG TABLET PO SCH ×2 (11:00→21:05)
[2022-09-25] MEDS: VALSARTAN 80 MG TABLET PO SCH (11:00)
[2022-09-25] MEDS: CITALOPRAM 20 MG TABLET PO SCH (21:05)
[2022-09-25] MEDS: CIPROFLOXACIN 500 MG TABLET PO SCH (21:05)
[2022-09-25] MEDS: LATANOPROST 0.005% OPH SOLN 2.5 ML BOTTLE BOTH EYES SCH (21:08)
[2022-09-26] MEDS: ONDANSETRON 4 MG/2 ML VIAL IV PRN ×3 (00:44→21:15)
[2022-09-26] MEDS: MORPHINE 2 MG/1 ML SYRINGE IV PRN ×2 (00:46→21:15)
[2022-09-26] MEDS: FUROSEMIDE 20 MG/2 ML VIAL IV SCH ×3 (02:56→17:42)
[2022-09-26 04:50] LABS: Basophils % 0.5 % (0.0-0.8); Eosinophils # 0.1 10*3/uL (0.0-0.87); Eosinophils % 1.7 % (0.00-10.9); Hematocrit 30.4 VOL% (35.7-47.0); Hemoglobin 10.3 GM/DL (12.0-16.0); Immature Granulocytes % 0.5 %; Immature Granulocytes Absolute 0.03 #; Lymphocytes # 1.6 10*3/uL (1.4-4.0); Lymphocytes % 24.2 % (21.3-54.2); Mean Corpuscular HGB Conc 33.9 GM/DL (32-36); Mean Platelet Volume 10.8 FL (9.6-12.0); Monocytes # 0.5 10*3/uL (0.11-0.8); Monocytes % 8.2 % (1.7-12.7); Neutrophils % 64.9 % (38.7-73.9); Platelet Count 317 T/CUMM (130-400); Red Blood Count 2.98 MC/CUMM (3.8-5.5); Red Cell Distribution Width 17.6 % (9.3-17.3); White Blood Count 6.5 T/CUMM (4-12)
[2022-09-26 05:16] LABS: Calcium 9.2 MG/DL (8.5-10.1); Osmolality,Calculated 276.4 MOS/KG (273-304); Potassium 3.2 MMOL/L (3.5-5.1)
[2022-09-26] MEDS: METOPROLOL TARTRATE 100 MG TABLET PO SCH ×2 (08:54→21:03)
[2022-09-26] MEDS: THIAMINE 100 MG TABLET PO SCH (08:54)
[2022-09-26] MEDS: MULTIVITAMIN (CENTRUM) TABLET PO SCH (08:54)
[2022-09-26] MEDS: PANTOPRAZOLE 40 MG TABLET PO SCH ×2 (08:54→21:03)
[2022-09-26] MEDS: FOLIC ACID 1 MG TABLET PO SCH (08:54)
[2022-09-26] MEDS: VALSARTAN 80 MG TABLET PO SCH (08:54)
[2022-09-26] MEDS: SPIRONOLACTONE 25 MG TABLET PO SCH (08:54)
[2022-09-26] MEDS: CIPROFLOXACIN 500 MG TABLET PO SCH ×2 (08:54→21:03)
[2022-09-26] MEDS: MAGNESIUM OXIDE 400 MG TABLET PO SCH (08:54)
[2022-09-26] MEDS: POTASSIUM CHLORIDE 20 MEQ TABLET PO PRN ×4 (08:55→15:11)
[2022-09-26] MEDS ORDERED: MICONAZOLE 2% VAG CREAM 45 GM TUBE VAG ONE (09:30)
[2022-09-26] MEDS ORDERED: MAGNESIUM SULF INJ 3 GM in SODIUM CHLORIDE 0.9% 100 ML IV ONE (14:45)
[2022-09-26] MEDS ORDERED: POTASSIUM CHLORIDE 20 MEQ TABLET PO ONE (14:46)
[2022-09-26] MEDS ORDERED: MAGNESIUM SULF RIDER 2 GM/50 ML PREMIX IV ONE (15:30)
[2022-09-26] MEDS: CITALOPRAM 20 MG TABLET PO SCH (21:03)
[2022-09-26] MEDS: LATANOPROST 0.005% OPH SOLN 2.5 ML BOTTLE BOTH EYES SCH (21:03)
[2022-09-26] MEDS: CHOLESTYRAMINE 4 GM PACK PO SCH (21:03)
[2022-09-26] MEDS: MICONAZOLE 2% VAG CREAM 45 GM TUBE VAG SCH (21:05)
[2022-09-27] MEDS: FUROSEMIDE 20 MG/2 ML VIAL IV SCH ×3 (02:24→17:19)
[2022-09-27] MEDS: MORPHINE 2 MG/1 ML SYRINGE IV PRN (02:24)
[2022-09-27] MEDS: ONDANSETRON 4 MG/2 ML VIAL IV PRN ×2 (02:25→20:50)
[2022-09-27 05:40] LABS: Basophils # 0.1 10*3/uL (0.0-0.2); Basophils % 0.8 % (0.0-0.8); Eosinophils # 0.1 10*3/uL (0.0-0.87); Eosinophils % 1.3 % (0.00-10.9); Hematocrit 32.3 VOL% (35.7-47.0); Hemoglobin 10.5 GM/DL (12.0-16.0); Immature Granulocytes % 0.5 %; Immature Granulocytes Absolute 0.03 #; Lymphocytes # 1.3 10*3/uL (1.4-4.0); Lymphocytes % 20.3 % (21.3-54.2); Mean Corpuscular HGB Conc 32.5 GM/DL (32-36); Mean Corpuscular Volume 104.5 FL (87-102); Mean Platelet Volume 10.7 FL (9.6-12.0); Monocytes # 0.6 10*3/uL (0.11-0.8); Monocytes % 8.9 % (1.7-12.7); Neutrophils % 68.2 % (38.7-73.9); Platelet Count 350 T/CUMM (130-400); Red Blood Count 3.09 MC/CUMM (3.8-5.5); Red Cell Distribution Width 17.2 % (9.3-17.3); White Blood Count 6.4 T/CUMM (4-12)
[2022-09-27 05:48] LABS: INR 1.1; PT Patient Result 12.4 SECS (10.1-12.1); Partial Thromboplastin Time 30.5 SECS (23.7-32.9)
[2022-09-27] MEDS ORDERED: MEPERIDINE 50 MG/1 ML VIAL IM ONE (07:30)
[2022-09-27] MEDS ORDERED: diphenhydrAMINE 50 MG/1 ML VIAL IM ONE (07:30)
[2022-09-27] MEDS ORDERED: BENZONATATE 100 MG CAPSULE PO ONE (07:30)
[2022-09-27] MEDS ORDERED: LIDOCAINE 1% 20 ML VIAL MISC INJ ONE (08:00)
[2022-09-27] MEDS ORDERED: LIDOCAINE 2% VISCOUS 100 ML BOTTLE SWISH/SPIT ONE (08:00)
[2022-09-27] MEDS ORDERED: LIDOCAINE 2% 20 ML VIAL RESP TX ONE (08:00)
[2022-09-27] MEDS ORDERED: MIDAZOLAM 2 MG/2 ML VIAL IV ONE (09:25)
[2022-09-27] MEDS: CHOLESTYRAMINE 4 GM PACK PO SCH ×2 (12:27→21:01)
[2022-09-27] MEDS: CIPROFLOXACIN 500 MG TABLET PO SCH ×2 (12:28→20:44)
[2022-09-27] MEDS: METOPROLOL TARTRATE 100 MG TABLET PO SCH ×2 (12:28→20:44)
[2022-09-27] MEDS: VALSARTAN 80 MG TABLET PO SCH (12:28)
[2022-09-27] MEDS: FOLIC ACID 1 MG TABLET PO SCH (12:28)
[2022-09-27] MEDS: SPIRONOLACTONE 25 MG TABLET PO SCH (12:28)
[2022-09-27] MEDS: MULTIVITAMIN (CENTRUM) TABLET PO SCH (12:28)
[2022-09-27] MEDS: MUPIROCIN 2% OINT 22 GM TUBE TOP SCH ×2 (12:28→22:01)
[2022-09-27] MEDS: THIAMINE 100 MG TABLET PO SCH (12:29)
[2022-09-27] MEDS: PANTOPRAZOLE 40 MG TABLET PO SCH ×2 (12:29→20:44)
[2022-09-27] MEDS: LATANOPROST 0.005% OPH SOLN 2.5 ML BOTTLE BOTH EYES SCH (20:43)
[2022-09-27] MEDS: CITALOPRAM 20 MG TABLET PO SCH (20:43)
[2022-09-27] MEDS: MICONAZOLE 2% VAG CREAM 45 GM TUBE VAG SCH (20:45)
[2022-09-28] MEDS: FUROSEMIDE 20 MG/2 ML VIAL IV SCH (01:13)
[2022-09-28] MEDS: ONDANSETRON 4 MG/2 ML VIAL IV PRN ×3 (04:29→22:00)
[2022-09-28 06:04] LABS: Basophils % 0.7 % (0.0-0.8); Eosinophils # 0.1 10*3/uL (0.0-0.87); Eosinophils % 1.4 % (0.00-10.9); Hematocrit 34.5 VOL% (35.7-47.0); Hemoglobin 11.3 GM/DL (12.0-16.0); Immature Granulocytes % 0.2 %; Immature Granulocytes Absolute 0.01 #; Lymphocytes # 1.3 10*3/uL (1.4-4.0); Lymphocytes % 23.1 % (21.3-54.2); Mean Corpuscular HGB Conc 32.8 GM/DL (32-36); Mean Corpuscular Volume 103.3 FL (87-102); Mean Platelet Volume 10.8 FL (9.6-12.0); Monocytes # 0.5 10*3/uL (0.11-0.8); Monocytes % 8.1 % (1.7-12.7); Neutrophils % 66.5 % (38.7-73.9); Platelet Count 381 T/CUMM (130-400); Red Blood Count 3.34 MC/CUMM (3.8-5.5); Red Cell Distribution Width 17.1 % (9.3-17.3); White Blood Count 5.7 T/CUMM (4-12)
[2022-09-28 06:19] LABS: Calcium 9.4 MG/DL (8.5-10.1); Osmolality,Calculated 277.4 MOS/KG (273-304); Potassium 3.6 MMOL/L (3.5-5.1)
[2022-09-28] MEDS: THIAMINE 100 MG TABLET PO SCH (08:30)
[2022-09-28] MEDS: FOLIC ACID 1 MG TABLET PO SCH (08:30)
[2022-09-28] MEDS: MULTIVITAMIN (CENTRUM) TABLET PO SCH (08:30)
[2022-09-28] MEDS: SPIRONOLACTONE 25 MG TABLET PO SCH (08:30)
[2022-09-28] MEDS: CIPROFLOXACIN 500 MG TABLET PO SCH ×2 (08:30→21:07)
[2022-09-28] MEDS: METOPROLOL TARTRATE 100 MG TABLET PO SCH ×2 (08:30→21:08)
[2022-09-28] MEDS: VALSARTAN 80 MG TABLET PO SCH (08:30)
[2022-09-28] MEDS: PANTOPRAZOLE 40 MG TABLET PO SCH ×2 (08:30→21:08)
[2022-09-28] MEDS: MUPIROCIN 2% OINT 22 GM TUBE TOP SCH ×2 (09:35→21:55)
[2022-09-28] MEDS: CHOLESTYRAMINE 4 GM PACK PO SCH (10:18)
[2022-09-28] MEDS: SODIUM CHLORIDE 0.45% 1,000 ML IV SCH (17:38)
[2022-09-28] MEDS: CITALOPRAM 20 MG TABLET PO SCH (21:07)
[2022-09-28] MEDS: MICONAZOLE 2% VAG CREAM 45 GM TUBE VAG SCH (21:09)
[2022-09-28] MEDS: LATANOPROST 0.005% OPH SOLN 2.5 ML BOTTLE BOTH EYES SCH (21:09)
[2022-09-28] MEDS ORDERED: CHOLESTYRAMINE 4 GM PACK PO SCH (22:00)
[2022-09-29] MEDS: ONDANSETRON 4 MG/2 ML VIAL IV PRN ×3 (05:31→22:31)
[2022-09-29 06:29] LABS: Basophils % 0.7 % (0.0-0.8); Eosinophils # 0.1 10*3/uL (0.0-0.87); Eosinophils % 1.5 % (0.00-10.9); Hematocrit 33.1 VOL% (35.7-47.0); Immature Granulocytes % 0.2 %; Immature Granulocytes Absolute 0.01 #; Lymphocytes # 1.3 10*3/uL (1.4-4.0); Mean Corpuscular HGB Conc 33.2 GM/DL (32-36); Mean Corpuscular Volume 103.4 FL (87-102); Mean Platelet Volume 10.7 FL (9.6-12.0); Monocytes # 0.5 10*3/uL (0.11-0.8); Monocytes % 9.5 % (1.7-12.7); Neutrophils % 65.1 % (38.7-73.9); Platelet Count 370 T/CUMM (130-400); Red Cell Distribution Width 17.1 % (9.3-17.3); White Blood Count 5.5 T/CUMM (4-12)
[2022-09-29 06:46] LABS: Calcium 9.4 MG/DL (8.5-10.1); Osmolality,Calculated 275.4 MOS/KG (273-304); Potassium 3.9 MMOL/L (3.5-5.1)
[2022-09-29] MEDS: THIAMINE 100 MG TABLET PO SCH (08:21)
[2022-09-29] MEDS: VALSARTAN 80 MG TABLET PO SCH (08:21)
[2022-09-29] MEDS: BACILLUS COAGULANS CAPLET PO SCH (08:21)
[2022-09-29] MEDS: METOPROLOL TARTRATE 100 MG TABLET PO SCH ×2 (08:21→21:15)
[2022-09-29] MEDS: PANTOPRAZOLE 40 MG TABLET PO SCH ×2 (08:21→21:15)
[2022-09-29] MEDS: SPIRONOLACTONE 25 MG TABLET PO SCH (08:22)
[2022-09-29] MEDS: MULTIVITAMIN (CENTRUM) TABLET PO SCH (08:22)
[2022-09-29] MEDS: TORSEMIDE 20 MG TABLET PO SCH (08:22)
[2022-09-29] MEDS: FOLIC ACID 1 MG TABLET PO SCH (08:22)
[2022-09-29] MEDS: CIPROFLOXACIN 500 MG TABLET PO SCH ×2 (08:22→21:15)
[2022-09-29] MEDS: MUPIROCIN 2% OINT 22 GM TUBE TOP SCH ×2 (08:24→21:18)
[2022-09-29] MEDS: FLUCONAZOLE 100 MG TABLET PO SCH (09:15)
[2022-09-29] MEDS: COLESTIPOL 1 GM TABLET PO SCH ×2 (09:15→21:15)
[2022-09-29] MEDS: SODIUM CHLORIDE 0.45% 1,000 ML IV SCH (12:36)
[2022-09-29] MEDS: CITALOPRAM 20 MG TABLET PO SCH (21:15)
[2022-09-29] MEDS: MICONAZOLE 2% VAG CREAM 45 GM TUBE VAG SCH (21:16)
[2022-09-29] MEDS: LATANOPROST 0.005% OPH SOLN 2.5 ML BOTTLE BOTH EYES SCH (21:16)
[2022-09-30 05:32] LABS: Basophils % 0.7 % (0.0-0.8); Eosinophils # 0.1 10*3/uL (0.0-0.87); Eosinophils % 1.9 % (0.00-10.9); Hematocrit 34.3 VOL% (35.7-47.0); Hemoglobin 11.4 GM/DL (12.0-16.0); Immature Granulocytes % 0.3 %; Immature Granulocytes Absolute 0.02 #; Lymphocytes # 1.4 10*3/uL (1.4-4.0); Lymphocytes % 23.2 % (21.3-54.2); Mean Corpuscular HGB Conc 33.2 GM/DL (32-36); Mean Platelet Volume 10.6 FL (9.6-12.0); Monocytes # 0.5 10*3/uL (0.11-0.8); Monocytes % 8.8 % (1.7-12.7); Neutrophils % 65.1 % (38.7-73.9); Platelet Count 375 T/CUMM (130-400); Red Blood Count 3.33 MC/CUMM (3.8-5.5); Red Cell Distribution Width 16.6 % (9.3-17.3); White Blood Count 5.9 T/CUMM (4-12)
[2022-09-30 05:47] LABS: Calcium 9.6 MG/DL (8.5-10.1); Osmolality,Calculated 274.5 MOS/KG (273-304); Potassium 3.7 MMOL/L (3.5-5.1)
[2022-09-30] MEDS: ONDANSETRON 4 MG/2 ML VIAL IV PRN ×2 (06:34→14:03)
[2022-09-30] MEDS: BACILLUS COAGULANS CAPLET PO SCH (09:09)
[2022-09-30] MEDS: MULTIVITAMIN (CENTRUM) TABLET PO SCH (09:09)
[2022-09-30] MEDS: VALSARTAN 80 MG TABLET PO SCH (09:09)
[2022-09-30] MEDS: FLUCONAZOLE 100 MG TABLET PO SCH (09:10)
[2022-09-30] MEDS: THIAMINE 100 MG TABLET PO SCH (09:10)
[2022-09-30] MEDS: CIPROFLOXACIN 500 MG TABLET PO SCH (09:10)
[2022-09-30] MEDS: COLESTIPOL 1 GM TABLET PO SCH (09:10)
[2022-09-30] MEDS: MUPIROCIN 2% OINT 22 GM TUBE TOP SCH (09:10)
[2022-09-30] MEDS: PANTOPRAZOLE 40 MG TABLET PO SCH (09:10)
[2022-09-30] MEDS: METOPROLOL TARTRATE 100 MG TABLET PO SCH (09:10)
[2022-09-30] MEDS: TORSEMIDE 20 MG TABLET PO SCH (09:10)
[2022-09-30] MEDS: SPIRONOLACTONE 25 MG TABLET PO SCH (09:10)
[2022-09-30] MEDS: FOLIC ACID 1 MG TABLET PO SCH (09:11)
[2022-09-30 12:15] VITALS: BP 129/75
[2022-09-30 19:16] LABS: M. Tuberculosis PCR Result Negative (Negative); M. Tuberculosis PCR Source BRONCH WASH
== END 2022-09-30 15:25 | disposition home health service (06) | DRG 391 ==
LOC: N.ED 15:18 → N.EDINP 20:12 → SUATTDRO 20:12 → N.3E 21:09
PROVIDERS: ADMIT Internal Medicine; ATTEND Hospitalist

== ENCOUNTER 2022-11-08 16:15 | Inpatient (IN) ==
[2022-11-08] MEDS ORDERED: ONDANSETRON 4 MG/2 ML VIAL IV STA (21:46)
[2022-11-08] MEDS ORDERED: PIPERACILLIN/TAZOBACTAM 3,375 MG in SODIUM CHLORIDE 0.9% 100 ML IV STA (21:46)
[2022-11-08] MEDS ORDERED: PANTOPRAZOLE 40 MG VIAL IV STA (21:46)
[2022-11-08] MEDS ORDERED: HYDROmorphone 1 MG/1 ML SYRINGE IV STA (21:46)
[2022-11-08] MEDS ORDERED: SODIUM CHLORIDE 0.9% 500 ML IV STA (21:46)
[2022-11-08 22:40] LABS: Basophils % 0.4 % (0.0-0.8); Eosinophils % 0.6 % (0.00-10.9); Hematocrit 31.3 VOL% (35.7-47.0); Hemoglobin 10.5 GM/DL (12.0-16.0); Immature Granulocytes % 0.4 %; Immature Granulocytes Absolute 0.02 #; Lymphocytes # 1.5 10*3/uL (1.4-4.0); Lymphocytes % 30.6 % (21.3-54.2); Mean Corpuscular HGB Conc 33.5 GM/DL (32-36); Mean Corpuscular Volume 102.6 FL (87-102); Mean Platelet Volume 10.4 FL (9.6-12.0); Monocytes # 0.4 10*3/uL (0.11-0.8); Monocytes % 7.8 % (1.7-12.7); Neutrophils % 60.2 % (38.7-73.9); Platelet Count 280 T/CUMM (130-400); Red Blood Count 3.05 MC/CUMM (3.8-5.5); Red Cell Distribution Width 15.9 % (9.3-17.3); White Blood Count 4.9 T/CUMM (4-12)
[2022-11-08 23:10] LABS: Albumin 3.7 G/DL (3.4-5.0); Bilirubin,Total 0.5 MG/DL (0.20-1.00); Osmolality,Calculated 272.2 MOS/KG (273-304); Potassium 4.8 MMOL/L (3.5-5.1); Total Protein 8.1 G/DL (6.4-8.2)
[2022-11-09 00:43] LABS: Bacteria,Urine Occasional /HPF (Few); RBC,Urine 1 /HPF (0-4); Squamous Epithelial Cell,Urine Occasional /HPF (0-10)
[2022-11-09 00:53] LABS: Bilirubin,Urine Negative (Negative); Blood, Urine Negative (Negative); Glucose,Urine (UA) Negative (Negative); Ketones,Urine Negative (Negative); Nitrite,Urine Negative (Negative); Protein,Urine Negative (Negative); Urine Appearance Clear (Clear); Urine Color Yellow (Yellow); Urine Specific Gravity 1.015 (1.001-1.035); Urine Urobilinogen 0.2 eU/dL (<2.0); Urine pH 8.5 (4.5-8.0)
[2022-11-09 02:26] LABS: INR 1.4; PT Patient Result 15.5 SECS (10.1-12.1)
[2022-11-09] MEDS ORDERED: HYDROmorphone 1 MG/1 ML SYRINGE IV STA (03:20)
[2022-11-09] MEDS ORDERED: ONDANSETRON 4 MG/2 ML VIAL IV STA (03:21)
[2022-11-09] MEDS ORDERED: NICOTINE 21 MG/24 HR PATCH TRANSDERM PRN (03:46)
[2022-11-09] MEDS ORDERED: ACETAMINOPHEN 325 MG TABLET PO PRN (03:46)
[2022-11-09] MEDS ORDERED: HYDROmorphone 1 MG/1 ML SYRINGE IV PRN (03:46)
[2022-11-09] MEDS ORDERED: ALBUTEROL/IPRATROPIUM 3 ML NEB RESP TX PRN (04:21)
[2022-11-09] MEDS ORDERED: ASPIRIN 325 MG TABLET PO ONE (04:45)
[2022-11-09] MEDS ORDERED: ALBUTEROL 2.5 MG/3 ML NEB RESP TX PRN (04:57)
[2022-11-09 04:58] LABS: Basophils % 0.5 % (0.0-0.8); Eosinophils # 0.1 10*3/uL (0.0-0.87); Eosinophils % 1.2 % (0.00-10.9); Hematocrit 27.7 VOL% (35.7-47.0); Hemoglobin 9.2 GM/DL (12.0-16.0); Immature Granulocytes % 0.2 %; Immature Granulocytes Absolute 0.01 #; Lymphocytes # 1.3 10*3/uL (1.4-4.0); Mean Corpuscular HGB Conc 33.2 GM/DL (32-36); Monocytes # 0.5 10*3/uL (0.11-0.8); Monocytes % 10.5 % (1.7-12.7); Neutrophils % 57.6 % (38.7-73.9); Platelet Count 236 T/CUMM (130-400); Red Blood Count 2.69 MC/CUMM (3.8-5.5); Red Cell Distribution Width 15.9 % (9.3-17.3); White Blood Count 4.3 T/CUMM (4-12)
[2022-11-09] MEDS: SODIUM CHLORIDE 0.9% 1,000 ML IV SCH ×2 (05:07→14:12)
[2022-11-09 05:35] LABS: Calcium 9.3 MG/DL (8.5-10.1); Osmolality,Calculated 273.2 MOS/KG (273-304); Potassium 4.2 MMOL/L (3.5-5.1)
[2022-11-09] MEDS ORDERED: HYOSCYAMINE 0.125 MG TABLET SL PRN (08:17)
[2022-11-09] MEDS ORDERED: WARFARIN 7.5 MG TABLET PO SCH (09:00)
[2022-11-09] MEDS ORDERED: PIPERACILLIN/TAZOBACTAM 3,375 MG in SODIUM CHLORIDE 0.9% 100 ML IV SCH (10:00)
[2022-11-09] MEDS: BACILLUS COAGULANS CAPLET PO SCH (10:29)
[2022-11-09] MEDS: COLESTIPOL 1 GM TABLET PO SCH ×2 (10:30→21:08)
[2022-11-09] MEDS: METOPROLOL TARTRATE 100 MG TABLET PO SCH ×2 (10:30→21:03)
[2022-11-09] MEDS: MAGNESIUM OXIDE 400 MG TABLET PO SCH ×2 (10:31→21:08)
[2022-11-09] MEDS: PANTOPRAZOLE 40 MG VIAL IV SCH (10:36)
[2022-11-09] MEDS: ERTAPENEM 500 MG in SODIUM CHLORIDE 0.9% 100 ML IV SCH (14:13)
[2022-11-09] MEDS: CITALOPRAM 20 MG TABLET PO SCH (17:56)
[2022-11-09] MEDS: WARFARIN 7.5 MG TABLET PO SCH (17:56)
[2022-11-09] MEDS: SIMVASTATIN 10 MG TABLET PO SCH (21:11)
[2022-11-09] MEDS: LATANOPROST 0.005% OPH SOLN 2.5 ML BOTTLE BOTH EYES SCH (22:35)
[2022-11-09] MEDS: ONDANSETRON 4 MG/2 ML VIAL IV PRN (22:35)
[2022-11-10] MEDS: SODIUM CHLORIDE 0.9% 1,000 ML IV SCH ×2 (01:54→21:45)
[2022-11-10 05:18] LABS: INR 1.6; PT Patient Result 16.7 SECS (10.1-12.1)
[2022-11-10] MEDS: BACILLUS COAGULANS CAPLET PO SCH (09:04)
[2022-11-10] MEDS: ASPIRIN EC 81 MG TABLET PO SCH (09:05)
[2022-11-10] MEDS: COLESTIPOL 1 GM TABLET PO SCH ×2 (09:05→21:00)
[2022-11-10] MEDS: PANTOPRAZOLE 40 MG VIAL IV SCH (09:05)
[2022-11-10] MEDS: METOPROLOL TARTRATE 100 MG TABLET PO SCH ×2 (09:05→20:10)
[2022-11-10] MEDS: MAGNESIUM OXIDE 400 MG TABLET PO SCH ×2 (09:06→20:10)
[2022-11-10] MEDS: ONDANSETRON 4 MG/2 ML VIAL IV PRN ×2 (10:47→20:10)
[2022-11-10] MEDS: ERTAPENEM 500 MG in SODIUM CHLORIDE 0.9% 100 ML IV SCH (14:30)
[2022-11-10] MEDS: CITALOPRAM 20 MG TABLET PO SCH (17:19)
[2022-11-10] MEDS: WARFARIN 7.5 MG TABLET PO SCH (17:19)
[2022-11-10] MEDS: LATANOPROST 0.005% OPH SOLN 2.5 ML BOTTLE BOTH EYES SCH (20:10)
[2022-11-10] MEDS: SIMVASTATIN 10 MG TABLET PO SCH (20:10)
[2022-11-11] MEDS: COLESTIPOL 1 GM TABLET PO SCH ×2 (09:43→22:40)
[2022-11-11] MEDS: MAGNESIUM OXIDE 400 MG TABLET PO SCH (09:43)
[2022-11-11] MEDS: BACILLUS COAGULANS CAPLET PO SCH (09:43)
[2022-11-11] MEDS: METOPROLOL TARTRATE 100 MG TABLET PO SCH ×2 (09:44→21:14)
[2022-11-11] MEDS: ASPIRIN EC 81 MG TABLET PO SCH (09:44)
[2022-11-11] MEDS: CEFUROXIME 500 MG TABLET PO SCH ×2 (09:49→17:24)
[2022-11-11] MEDS ORDERED: LOPERAMIDE 2 MG CAPSULE PO PRN (12:42)
[2022-11-11] MEDS ORDERED: LOPERAMIDE 2 MG CAPSULE PO ONE (13:15)
[2022-11-11] MEDS: ONDANSETRON 4 MG/2 ML VIAL IV SCH ×3 (14:04→21:13)
[2022-11-11] MEDS: PANTOPRAZOLE 40 MG VIAL IV SCH (14:05)
[2022-11-11] MEDS: WARFARIN 7.5 MG TABLET PO SCH (17:24)
[2022-11-11] MEDS: CITALOPRAM 20 MG TABLET PO SCH (17:25)
[2022-11-11] MEDS: LATANOPROST 0.005% OPH SOLN 2.5 ML BOTTLE BOTH EYES SCH (21:14)
[2022-11-11] MEDS: SIMVASTATIN 10 MG TABLET PO SCH (21:17)
[2022-11-12] MEDS: ONDANSETRON 4 MG/2 ML VIAL IV SCH ×6 (02:32→21:52)
[2022-11-12 04:54] LABS: Basophils % 0.6 % (0.0-0.8); Eosinophils # 0.1 10*3/uL (0.0-0.87); Eosinophils % 1.3 % (0.00-10.9); Hematocrit 27.7 VOL% (35.7-47.0); Immature Granulocytes % 0.2 %; Immature Granulocytes Absolute 0.01 #; Lymphocytes # 1.2 10*3/uL (1.4-4.0); Lymphocytes % 25.9 % (21.3-54.2); Mean Corpuscular HGB Conc 32.5 GM/DL (32-36); Mean Corpuscular Volume 104.9 FL (87-102); Mean Platelet Volume 10.1 FL (9.6-12.0); Monocytes # 0.5 10*3/uL (0.11-0.8); Monocytes % 10.2 % (1.7-12.7); Neutrophils % 61.8 % (38.7-73.9); Platelet Count 252 T/CUMM (130-400); Red Blood Count 2.64 MC/CUMM (3.8-5.5); Red Cell Distribution Width 15.2 % (9.3-17.3); White Blood Count 4.8 T/CUMM (4-12)
[2022-11-12 04:56] LABS: INR 2.1; PT Patient Result 21.6 SECS (10.1-12.1)
[2022-11-12 05:10] LABS: Osmolality,Calculated 271.7 MOS/KG (273-304); Potassium 4.3 MMOL/L (3.5-5.1)
[2022-11-12] MEDS: METOPROLOL TARTRATE 100 MG TABLET PO SCH ×2 (09:00→21:53)
[2022-11-12] MEDS: BACILLUS COAGULANS CAPLET PO SCH (09:54)
[2022-11-12] MEDS: PANTOPRAZOLE 40 MG VIAL IV SCH (09:54)
[2022-11-12] MEDS: ASPIRIN EC 81 MG TABLET PO SCH (09:55)
[2022-11-12] MEDS: CEFUROXIME 500 MG TABLET PO SCH (09:55)
[2022-11-12] MEDS: COLESTIPOL 1 GM TABLET PO SCH ×2 (09:55→22:52)
[2022-11-12] MEDS: SODIUM CHLORIDE 0.9% 1,000 ML IV SCH ×2 (12:32→18:28)
[2022-11-12] MEDS: MULTIVITAMIN (BEROCCA) TABLET PO SCH (16:44)
[2022-11-12] MEDS: CITALOPRAM 20 MG TABLET PO SCH (17:56)
[2022-11-12] MEDS: ERTAPENEM 1,000 MG in SODIUM CHLORIDE 0.9% 100 ML IV SCH (17:56)
[2022-11-12] MEDS: WARFARIN 7.5 MG TABLET PO SCH (17:56)
[2022-11-12] MEDS: LATANOPROST 0.005% OPH SOLN 2.5 ML BOTTLE BOTH EYES SCH (21:53)
[2022-11-12] MEDS: SIMVASTATIN 10 MG TABLET PO SCH (21:53)
[2022-11-13] MEDS: ONDANSETRON 4 MG/2 ML VIAL IV SCH ×6 (03:22→21:02)
[2022-11-13 04:39] LABS: Basophils % 0.4 % (0.0-0.8); Eosinophils % 0.9 % (0.00-10.9); Hematocrit 26.2 VOL% (35.7-47.0); Hemoglobin 8.5 GM/DL (12.0-16.0); Immature Granulocytes % 0.4 %; Immature Granulocytes Absolute 0.02 #; Lymphocytes # 1.5 10*3/uL (1.4-4.0); Lymphocytes % 32.2 % (21.3-54.2); Mean Corpuscular HGB Conc 32.4 GM/DL (32-36); Mean Platelet Volume 10.1 FL (9.6-12.0); Monocytes # 0.3 10*3/uL (0.11-0.8); Monocytes % 6.6 % (1.7-12.7); Neutrophils % 59.5 % (38.7-73.9); Platelet Count 231 T/CUMM (130-400); Red Blood Count 2.52 MC/CUMM (3.8-5.5); Red Cell Distribution Width 15.2 % (9.3-17.3); White Blood Count 4.56 T/CUMM (4-12)
[2022-11-13 04:43] LABS: INR 1.8; PT Patient Result 19.2 SECS (10.1-12.1)
[2022-11-13 05:11] LABS: Calcium 8.6 MG/DL (8.5-10.1); Osmolality,Calculated 279.1 MOS/KG (273-304); Potassium 4.5 MMOL/L (3.5-5.1)
[2022-11-13 05:27] LABS: Hypochromia Slight; Platelet Estimate Normal
[2022-11-13] MEDS: ASPIRIN EC 81 MG TABLET PO SCH (09:55)
[2022-11-13] MEDS: METOPROLOL TARTRATE 100 MG TABLET PO SCH ×2 (09:55→21:01)
[2022-11-13] MEDS: PANTOPRAZOLE 40 MG VIAL IV SCH (09:55)
[2022-11-13] MEDS: MULTIVITAMIN (BEROCCA) TABLET PO SCH (09:55)
[2022-11-13] MEDS: BACILLUS COAGULANS CAPLET PO SCH (09:55)
[2022-11-13] MEDS: COLESTIPOL 1 GM TABLET PO SCH ×2 (11:14→22:53)
[2022-11-13] MEDS: SODIUM CHLORIDE 0.9% 1,000 ML IV SCH ×2 (15:03→15:06)
[2022-11-13] MEDS: WARFARIN 7.5 MG TABLET PO SCH (17:22)
[2022-11-13] MEDS: CITALOPRAM 20 MG TABLET PO SCH (17:22)
[2022-11-13] MEDS: ERTAPENEM 1,000 MG in SODIUM CHLORIDE 0.9% 100 ML IV SCH (17:23)
[2022-11-13] MEDS: SIMVASTATIN 10 MG TABLET PO SCH (21:01)
[2022-11-13] MEDS: LATANOPROST 0.005% OPH SOLN 2.5 ML BOTTLE BOTH EYES SCH (21:02)
[2022-11-14] MEDS: ONDANSETRON 4 MG/2 ML VIAL IV SCH ×2 (03:35→08:32)
[2022-11-14 05:31] LABS: Basophils % 0.2 % (0.0-0.8); Eosinophils # 0.1 10*3/uL (0.0-0.87); Eosinophils % 1.3 % (0.00-10.9); Hematocrit 24.4 VOL% (35.7-47.0); Immature Granulocytes % 0.2 %; Immature Granulocytes Absolute 0.01 #; Lymphocytes # 1.3 10*3/uL (1.4-4.0); Lymphocytes % 26.6 % (21.3-54.2); Mean Corpuscular HGB Conc 32.8 GM/DL (32-36); Mean Platelet Volume 10.2 FL (9.6-12.0); Monocytes # 0.3 10*3/uL (0.11-0.8); Monocytes % 6.8 % (1.7-12.7); Neutrophils % 64.9 % (38.7-73.9); Platelet Count 223 T/CUMM (130-400); Red Blood Count 2.37 MC/CUMM (3.8-5.5); Red Cell Distribution Width 15.1 % (9.3-17.3)
[2022-11-14 05:40] LABS: INR 1.8; PT Patient Result 18.6 SECS (10.1-12.1)
[2022-11-14 05:56] LABS: Calcium 8.7 MG/DL (8.5-10.1); Potassium 4.3 MMOL/L (3.5-5.1)
[2022-11-14 07:59] VITALS: BP 110/65
[2022-11-14] MEDS: PANTOPRAZOLE 40 MG VIAL IV SCH (08:40)
[2022-11-14] MEDS: MULTIVITAMIN (BEROCCA) TABLET PO SCH (08:47)
[2022-11-14] MEDS: METOPROLOL TARTRATE 100 MG TABLET PO SCH (08:47)
[2022-11-14] MEDS: BACILLUS COAGULANS CAPLET PO SCH (08:48)
[2022-11-14] MEDS: ASPIRIN EC 81 MG TABLET PO SCH (08:48)
[2022-11-14] MEDS: COLESTIPOL 1 GM TABLET PO SCH (10:23)
== END 2022-11-14 11:40 | disposition home or self-care (01) | DRG 392 ==
LOC: N.ED 16:15 → N.EDINP 11-09 03:46 → SUATTDRO 11-09 03:46 → N.3E 11-09 11:40
PROVIDERS: ADMIT Internal Medicine; ATTEND Hospitalist

== ENCOUNTER 2022-11-18 11:50 | Inpatient (IN) ==
[2022-11-18] MEDS ORDERED: PIPERACILLIN/TAZOBACTAM 3,375 MG in SODIUM CHLORIDE 0.9% 100 ML IV STA (12:59)
[2022-11-18] MEDS ORDERED: SODIUM CHLORIDE 0.9% 1,000 ML IV STA (12:59)
[2022-11-18 13:00] LABS: Basophils % 0.1 % (0.0-0.8); Eosinophils % 0.2 % (0.00-10.9); Hematocrit 28.1 VOL% (35.7-47.0); Hemoglobin 9.5 GM/DL (12.0-16.0); Immature Granulocytes % 0.3 %; Immature Granulocytes Absolute 0.03 #; Lymphocytes # 0.9 10*3/uL (1.4-4.0); Lymphocytes % 10.2 % (21.3-54.2); Mean Corpuscular HGB Conc 33.8 GM/DL (32-36); Mean Corpuscular Volume 101.4 FL (87-102); Monocytes # 0.6 10*3/uL (0.11-0.8); Monocytes % 6.9 % (1.7-12.7); Neutrophils % 82.3 % (38.7-73.9); Platelet Count 258 T/CUMM (130-400); Red Blood Count 2.77 MC/CUMM (3.8-5.5); Red Cell Distribution Width 15.3 % (9.3-17.3); White Blood Count 9.04 T/CUMM (4-12)
[2022-11-18] MEDS ORDERED: ONDANSETRON 4 MG/2 ML VIAL IV STA (13:00)
[2022-11-18] MEDS ORDERED: HYDROmorphone 1 MG/1 ML SYRINGE IV STA ×2 (13:00→15:54)
[2022-11-18 13:14] LABS: Albumin 3.5 G/DL (3.4-5.0); Bilirubin,Total 0.9 MG/DL (0.20-1.00); Calcium 9.7 MG/DL (8.5-10.1); Osmolality,Calculated 267.2 MOS/KG (273-304); Potassium 4.3 MMOL/L (3.5-5.1); Total Protein 8.3 G/DL (6.4-8.2)
[2022-11-18 14:55] LABS: RBC,Urine <1 /HPF (0-4); Squamous Epithelial Cell,Urine Occasional /HPF (0-10)
[2022-11-18 14:56] LABS: Bilirubin,Urine Negative (Negative); Blood, Urine Negative (Negative); Glucose,Urine (UA) Negative (Negative); Ketones,Urine Negative (Negative); Nitrite,Urine Negative (Negative); Protein,Urine Negative (Negative); Urine Appearance Clear (Clear); Urine Color Yellow (Yellow); Urine Urobilinogen 0.2 eU/dL (<2.0); Urine pH 8.5 (4.5-8.0)
[2022-11-18] MEDS ORDERED: DOCUSATE SODIUM 100 MG CAPSULE PO PRN (16:34)
[2022-11-18] MEDS ORDERED: HEPARIN 5,000 UNIT/1 ML VIAL SUBCUT SCH (17:00)
[2022-11-18] MEDS ORDERED: metroNIDAZOLE INJ 500 MG/100 ML PREMIX IV SCH (17:00)
[2022-11-18] MEDS ORDERED: NITROGLYCERIN SL 0.4 MG TABLET SL PRN (17:27)
[2022-11-18] MEDS ORDERED: ENOXAPARIN 40 MG/0.4 ML SYRINGE SUBCUT SCH (17:30)
[2022-11-18] MEDS ORDERED: NICOTINE 14 MG/24 HR PATCH TRANSDERM PRN (17:32)
[2022-11-18 17:42] LABS: INR 1.2; PT Patient Result 13.4 SECS (10.1-12.1)
[2022-11-18] MEDS ORDERED: CIPROFLOXACIN INJ 400 MG/200 ML PREMIX IV SCH (18:00)
[2022-11-18] MEDS: ONDANSETRON 4 MG/2 ML VIAL IV PRN (19:32)
[2022-11-18] MEDS: MORPHINE 2 MG/1 ML SYRINGE IV PRN (19:32)
[2022-11-18] MEDS: LACTATED RINGERS 1,000 ML IV SCH (19:53)
[2022-11-18] MEDS ORDERED: ERTAPENEM 1,000 MG in SODIUM CHLORIDE 0.9% 100 ML IV SCH (21:00)
[2022-11-18] MEDS: METOPROLOL TARTRATE 50 MG TABLET PO SCH (21:07)
[2022-11-18] MEDS: METHOCARBAMOL 500 MG TABLET PO SCH (21:07)
[2022-11-18] MEDS: SIMVASTATIN 10 MG TABLET PO SCH (21:07)
[2022-11-18] MEDS: CITALOPRAM 20 MG TABLET PO SCH (21:08)
[2022-11-18] MEDS: LATANOPROST 0.005% OPH SOLN 2.5 ML BOTTLE BOTH EYES SCH (21:40)
[2022-11-19] MEDS: ONDANSETRON 4 MG/2 ML VIAL IV PRN ×2 (00:12→13:35)
[2022-11-19] MEDS: MORPHINE 2 MG/1 ML SYRINGE IV PRN ×2 (00:13→13:39)
[2022-11-19] MEDS: ACETAMINOPHEN 325 MG TABLET PO PRN ×2 (04:02→12:18)
[2022-11-19 06:06] LABS: Basophils % 0.2 % (0.0-0.8); Hemoglobin 8.5 GM/DL (12.0-16.0); Immature Granulocytes % 0.8 %; Immature Granulocytes Absolute 0.07 #; Lymphocytes # 0.5 10*3/uL (1.4-4.0); Lymphocytes % 5.6 % (21.3-54.2); Mean Corpuscular HGB Conc 32.7 GM/DL (32-36); Mean Corpuscular Volume 105.7 FL (87-102); Mean Platelet Volume 10.9 FL (9.6-12.0); Monocytes # 0.4 10*3/uL (0.11-0.8); Monocytes % 5.1 % (1.7-12.7); Neutrophils % 88.3 % (38.7-73.9); Platelet Count 217 T/CUMM (130-400); Red Blood Count 2.46 MC/CUMM (3.8-5.5); Red Cell Distribution Width 15.4 % (9.3-17.3); White Blood Count 8.71 T/CUMM (4-12)
[2022-11-19 06:16] LABS: Osmolality,Calculated 269.1 MOS/KG (273-304)
[2022-11-19] MEDS ORDERED: ACETAMINOPHEN 325 MG TABLET PO ONE (07:30)
[2022-11-19] MEDS: ASPIRIN EC 81 MG TABLET PO SCH (08:13)
[2022-11-19] MEDS: POTASSIUM CHLORIDE 20 MEQ TABLET PO SCH (08:13)
[2022-11-19] MEDS: METOPROLOL TARTRATE 50 MG TABLET PO SCH (08:14)
[2022-11-19] MEDS: LACTATED RINGERS 1,000 ML IV SCH (08:19)
[2022-11-19] MEDS ORDERED: TORSEMIDE 20 MG TABLET PO SCH (09:00)
[2022-11-19] MEDS: MEROPENEM 500 MG in SODIUM CHLORIDE 0.9% 100 ML IV SCH ×2 (12:11→17:03)
[2022-11-19] MEDS ORDERED: IBUPROFEN 400 MG TABLET PO PRN (13:55)
[2022-11-19] MEDS ORDERED: PROMETHAZINE 25 MG/1 ML VIAL IM PRN (13:57)
[2022-11-19] MEDS ORDERED: ERTAPENEM 1,000 MG in SODIUM CHLORIDE 0.9% 100 ML IV SCH (17:00)
[2022-11-19] MEDS: CITALOPRAM 20 MG TABLET PO SCH (17:02)
[2022-11-19] MEDS: ONDANSETRON 4 MG/2 ML VIAL IV SCH ×2 (17:03→21:03)
[2022-11-19] MEDS: DEXTROSE 5% NACL 0.9% 1,000 ML IV SCH (17:07)
[2022-11-19] MEDS: ENOXAPARIN 60 MG/0.6 ML SYRINGE SUBCUT SCH (20:59)
[2022-11-19] MEDS: METHOCARBAMOL 500 MG TABLET PO SCH (21:00)
[2022-11-19] MEDS: SIMVASTATIN 10 MG TABLET PO SCH (21:00)
[2022-11-19] MEDS: LATANOPROST 0.005% OPH SOLN 2.5 ML BOTTLE BOTH EYES SCH (21:02)
[2022-11-20] MEDS: MEROPENEM 500 MG in SODIUM CHLORIDE 0.9% 100 ML IV SCH ×4 (00:36→18:37)
[2022-11-20] MEDS: ONDANSETRON 4 MG/2 ML VIAL IV SCH ×6 (01:38→21:48)
[2022-11-20] MEDS: MORPHINE 2 MG/1 ML SYRINGE IV PRN ×3 (01:39→18:38)
[2022-11-20] MEDS: DEXTROSE 5% NACL 0.9% 1,000 ML IV SCH ×2 (03:21→18:12)
[2022-11-20 06:12] LABS: Basophils % 0.2 % (0.0-0.8); Eosinophils % 0.1 % (0.00-10.9); Hematocrit 27.6 VOL% (35.7-47.0); Immature Granulocytes % 0.8 %; Immature Granulocytes Absolute 0.07 #; Lymphocytes # 0.9 10*3/uL (1.4-4.0); Lymphocytes % 9.7 % (21.3-54.2); Mean Corpuscular HGB Conc 32.6 GM/DL (32-36); Mean Corpuscular Volume 104.5 FL (87-102); Mean Platelet Volume 11.2 FL (9.6-12.0); Monocytes # 0.5 10*3/uL (0.11-0.8); Neutrophils % 84.2 % (38.7-73.9); Platelet Count 215 T/CUMM (130-400); Red Blood Count 2.64 MC/CUMM (3.8-5.5); Red Cell Distribution Width 15.3 % (9.3-17.3); White Blood Count 8.97 T/CUMM (4-12)
[2022-11-20 07:00] LABS: Osmolality,Calculated 277.4 MOS/KG (273-304); Potassium 3.4 MMOL/L (3.5-5.1)
[2022-11-20] MEDS: ASPIRIN EC 81 MG TABLET PO SCH (08:43)
[2022-11-20] MEDS: POTASSIUM CHLORIDE 20 MEQ TABLET PO SCH (08:43)
[2022-11-20] MEDS: ENOXAPARIN 60 MG/0.6 ML SYRINGE SUBCUT SCH ×2 (08:44→21:47)
[2022-11-20] MEDS ORDERED: POTASSIUM CHLORIDE 20 MEQ TABLET PO ONE (10:45)
[2022-11-20] MEDS: CHOLESTYRAMINE 4 GM PACK PO SCH ×2 (14:02→21:47)
[2022-11-20] MEDS: LACTOBACILLUS ACIDOPHILUS/BULGARICUS 1 PACKET PO SCH ×3 (14:02→21:47)
[2022-11-20] MEDS: CITALOPRAM 20 MG TABLET PO SCH (18:37)
[2022-11-20] MEDS: SIMVASTATIN 10 MG TABLET PO SCH (21:48)
[2022-11-20] MEDS: METHOCARBAMOL 500 MG TABLET PO SCH (21:48)
[2022-11-20] MEDS: LATANOPROST 0.005% OPH SOLN 2.5 ML BOTTLE BOTH EYES SCH (21:56)
[2022-11-21] MEDS: MEROPENEM 500 MG in SODIUM CHLORIDE 0.9% 100 ML IV SCH ×5 (00:19→23:52)
[2022-11-21] MEDS: ONDANSETRON 4 MG/2 ML VIAL IV SCH ×6 (02:09→22:04)
[2022-11-21] MEDS: DEXTROSE 5% NACL 0.9% 1,000 ML IV SCH ×3 (04:00→19:51)
[2022-11-21 06:38] LABS: Calcium 8.9 MG/DL (8.5-10.1); Osmolality,Calculated 279.1 MOS/KG (273-304); Potassium 3.9 MMOL/L (3.5-5.1)
[2022-11-21 07:22] LABS: Basophils % 0.2 % (0.0-0.8); Eosinophils # 0.1 10*3/uL (0.0-0.87); Eosinophils % 1.1 % (0.00-10.9); Hematocrit 25.1 VOL% (35.7-47.0); Hemoglobin 8.4 GM/DL (12.0-16.0); Immature Granulocytes % 0.4 %; Immature Granulocytes Absolute 0.02 #; Mean Corpuscular HGB Conc 33.5 GM/DL (32-36); Mean Corpuscular Volume 104.6 FL (87-102); Mean Platelet Volume 11.2 FL (9.6-12.0); Monocytes # 0.5 10*3/uL (0.11-0.8); Monocytes % 9.5 % (1.7-12.7); Neutrophils % 70.8 % (38.7-73.9); Platelet Count 220 T/CUMM (130-400); Red Cell Distribution Width 15.2 % (9.3-17.3); White Blood Count 5.38 T/CUMM (4-12)
[2022-11-21] MEDS: LACTOBACILLUS ACIDOPHILUS/BULGARICUS 1 PACKET PO SCH ×4 (09:06→22:08)
[2022-11-21] MEDS: POTASSIUM CHLORIDE 20 MEQ TABLET PO SCH (09:06)
[2022-11-21] MEDS: CHOLESTYRAMINE 4 GM PACK PO SCH ×2 (09:06→23:13)
[2022-11-21] MEDS: ENOXAPARIN 60 MG/0.6 ML SYRINGE SUBCUT SCH ×2 (09:06→22:08)
[2022-11-21] MEDS: ASPIRIN EC 81 MG TABLET PO SCH (09:06)
[2022-11-21] MEDS: MORPHINE 2 MG/1 ML SYRINGE IV PRN ×2 (13:47→22:05)
[2022-11-21] MEDS: CITALOPRAM 20 MG TABLET PO SCH (17:09)
[2022-11-21] MEDS: SIMVASTATIN 10 MG TABLET PO SCH (22:00)
[2022-11-21] MEDS: METHOCARBAMOL 500 MG TABLET PO SCH (22:01)
[2022-11-21] MEDS: LATANOPROST 0.005% OPH SOLN 2.5 ML BOTTLE BOTH EYES SCH (23:13)
[2022-11-22] MEDS: ONDANSETRON 4 MG/2 ML VIAL IV SCH ×6 (02:10→21:16)
[2022-11-22 05:50] LABS: Basophils % 0.4 % (0.0-0.8); Eosinophils # 0.1 10*3/uL (0.0-0.87); Eosinophils % 1.9 % (0.00-10.9); Hematocrit 23.1 VOL% (35.7-47.0); Hemoglobin 7.3 GM/DL (12.0-16.0); Immature Granulocytes % 0.4 %; Immature Granulocytes Absolute 0.02 #; Lymphocytes # 1.2 10*3/uL (1.4-4.0); Mean Corpuscular HGB Conc 31.6 GM/DL (32-36); Mean Corpuscular Volume 106.5 FL (87-102); Mean Platelet Volume 11.6 FL (9.6-12.0); Monocytes # 0.4 10*3/uL (0.11-0.8); Monocytes % 8.6 % (1.7-12.7); Neutrophils % 63.7 % (38.7-73.9); Platelet Count 217 T/CUMM (130-400); Red Blood Count 2.17 MC/CUMM (3.8-5.5); White Blood Count 4.64 T/CUMM (4-12)
[2022-11-22] MEDS: MEROPENEM 500 MG in SODIUM CHLORIDE 0.9% 100 ML IV SCH ×3 (05:58→17:05)
[2022-11-22 06:09] LABS: Calcium 8.7 MG/DL (8.5-10.1); Osmolality,Calculated 278.1 MOS/KG (273-304); Potassium 3.8 MMOL/L (3.5-5.1)
[2022-11-22] MEDS: DEXTROSE 5% NACL 0.9% 1,000 ML IV SCH ×2 (06:33→16:13)
[2022-11-22] MEDS: CHOLESTYRAMINE 4 GM PACK PO SCH ×2 (10:24→21:17)
[2022-11-22] MEDS: LACTOBACILLUS ACIDOPHILUS/BULGARICUS 1 PACKET PO SCH ×4 (10:25→21:17)
[2022-11-22] MEDS: ENOXAPARIN 60 MG/0.6 ML SYRINGE SUBCUT SCH ×2 (10:25→21:16)
[2022-11-22] MEDS: ASPIRIN EC 81 MG TABLET PO SCH (10:25)
[2022-11-22] MEDS: POTASSIUM CHLORIDE 20 MEQ TABLET PO SCH (10:27)
[2022-11-22] MEDS: CITALOPRAM 20 MG TABLET PO SCH (17:05)
[2022-11-22] MEDS: METHOCARBAMOL 500 MG TABLET PO SCH (21:16)
[2022-11-22] MEDS: SIMVASTATIN 10 MG TABLET PO SCH (21:16)
[2022-11-22] MEDS: LATANOPROST 0.005% OPH SOLN 2.5 ML BOTTLE BOTH EYES SCH (21:17)
[2022-11-23] MEDS: MEROPENEM 500 MG in SODIUM CHLORIDE 0.9% 100 ML IV SCH ×3 (00:55→12:45)
[2022-11-23] MEDS: ONDANSETRON 4 MG/2 ML VIAL IV SCH ×5 (02:20→15:20)
[2022-11-23] MEDS: DEXTROSE 5% NACL 0.9% 1,000 ML IV SCH (04:30)
[2022-11-23 06:05] LABS: Basophils % 0.4 % (0.0-0.8); Eosinophils # 0.1 10*3/uL (0.0-0.87); Eosinophils % 1.6 % (0.00-10.9); Hematocrit 22.5 VOL% (35.7-47.0); Hemoglobin 7.3 GM/DL (12.0-16.0); Immature Granulocytes % 0.6 %; Immature Granulocytes Absolute 0.03 #; Lymphocytes # 1.1 10*3/uL (1.4-4.0); Lymphocytes % 21.6 % (21.3-54.2); Mean Corpuscular HGB Conc 32.4 GM/DL (32-36); Mean Corpuscular Volume 105.6 FL (87-102); Monocytes # 0.3 10*3/uL (0.11-0.8); Neutrophils % 69.8 % (38.7-73.9); Platelet Count 206 T/CUMM (130-400); Red Blood Count 2.13 MC/CUMM (3.8-5.5); Red Cell Distribution Width 15.3 % (9.3-17.3); White Blood Count 4.99 T/CUMM (4-12)
[2022-11-23 06:38] LABS: Calcium 8.2 MG/DL (8.5-10.1); Osmolality,Calculated 277.1 MOS/KG (273-304); Potassium 3.8 MMOL/L (3.5-5.1)
[2022-11-23] MEDS ORDERED: MAGNESIUM SULF RIDER 4 GM/100 ML PREMIX IV ONE (07:37)
[2022-11-23] MEDS ORDERED: MULTIVITAMIN (CENTRUM) TABLET PO SCH (09:00)
[2022-11-23] MEDS: LACTOBACILLUS ACIDOPHILUS/BULGARICUS 1 PACKET PO SCH ×2 (10:22→14:10)
[2022-11-23] MEDS: ENOXAPARIN 60 MG/0.6 ML SYRINGE SUBCUT SCH (10:22)
[2022-11-23] MEDS: ASPIRIN EC 81 MG TABLET PO SCH (10:23)
[2022-11-23] MEDS: POTASSIUM CHLORIDE 20 MEQ TABLET PO SCH (10:23)
[2022-11-23] MEDS: CHOLESTYRAMINE 4 GM PACK PO SCH (10:37)
[2022-11-23 11:51] LABS: INR 1.3; PT Patient Result 13.7 SECS (10.1-12.1)
[2022-11-23 12:12] VITALS: BP 143/93
[2022-11-23] MEDS ORDERED: WARFARIN 10 MG TABLET PO ONE (13:00)
== END 2022-11-23 15:50 | disposition home health service (06) | DRG 392 ==
LOC: N.ED 11:50 → N.EDINP 11:50 → N.2W 19:08 → SUATTDRO 11-19 17:35 → N.2E 11-20 10:20
PROVIDERS: ADMIT Hospitalist; ATTEND Family Medicine